=== PATIENT | female | born 2005 | race Caucasian/White ===

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

== ENCOUNTER 2024-10-15 09:10 | Outpatient (CLI) | payer OTHER, SELFPAY | END 2024-10-15 09:11 | disposition home or self-care (01) | LOC: RT 09:11 | PROVIDERS: PCP Family Medicine; Visit Provider Nurse Practitioner Family | DX: Z02.71 Encounter for disability determination (principal) | CPT/HCPCS: 94618 ==

== ENCOUNTER 2025-02-10 15:39 | Outpatient (CLI) | payer BC, MEDICAID, SELFPAY ==
--- NOTE | 2025-02-10 15:46 | CT_ITS ---
WS: [id number] CT NECK WITH CONTRAST HISTORY: OTALGIA, BILATERAL TECHNIQUE: Contiguous 2 mm axial images are performed through the neck with intravenous contrast. Sagittal and coronal reformats are also submitted. All CT scans at [facility] use at least one of these dose optimization techniques: automated exposure control; mA and/or kV adjustment per patient size (includes targeted exams where dose is matched to clinical indication); or iterative reconstruction. CONTRAST: CONTRAST: Omnipaque 350; 100 mL IV. DLP: 240.83 mGy.cm COMPARISON: None available. Nasopharynx, oropharynx, hypopharynx and larynx are unremarkable. No soft tissue masses or abnormal enhancement. Torus tubarius and fossa of Rosenmuller and parapharyngeal fat are normal. Small but numerous bilateral cervical chain lymph nodes. Mildly reactive but not pathologic in appearance. Thyroid gland and salivary glands are normally enhancing with no masses. No osseous abnormalities. Visualized portions of the skull base demonstrate no abnormalities. Orbits and globes are within normal limits. No soft tissue masses. Abnormal RIGHT mastoid air cells. There is sclerosis and coalescence of the mastoid air cells on the RIGHT. No soft tissue surrounding the inner ear ossicles. Eustachian tubes appear patent. Patent dural venous sinuses with the RIGHT being dominant and LEFT smaller caliber. Large mucous retention cyst measuring 2.5 cm in the RIGHT maxillary sinus. Postsurgical changes involving the aortic arch. History of hypoplastic LEFT heart syndrome with surgical repair. Large RIGHT paratracheal mass identified most consistent with a lymph node. Loss of the normal fatty hilum. There are several lymph nodes but the largest is high RIGHT paratracheal measuring 2.3 x 3.1 cm. Similar but smaller mediastinal lymph nodes. On the localizer image there is also mediastinal widening greatest on the RIGHT. CT/CT neck w con* [id number] IMPRESSION: 1. Marked sclerosis with coalescence of the RIGHT mastoid air cells. Most like ly from chronic otomastoiditis. No soft tissue along the inner ear or surroundi ng the ossicles at this time. No focal abscess. 2. Small but numerous, likely reactive cervical chain lymph nodes. 3. Enlarged lymph nodes with loss of the normal fatty hilum involving the supe rior mediastinum. Largest lymph node high RIGHT paratracheal is 2.3 x 3.1 cm. R ecommend follow-up chest CT with IV contrast. Differential includes neoplastic process such as lymphoma or leukemia. Additional work-up needs to be performed at this time. 4. Status post surgical repair of hypoplastic LEFT heart syndrome.
[2025-02-10] MEDS: iohexol 350 mg/mL 500 mL Btl (per mL) IV (16:28)
== END 2025-02-10 15:40 | disposition home or self-care (01) ==
LOC: RAD 15:42
PROVIDERS: PCP Family Medicine; Visit Provider Nurse Practitioner Family
DX: H92.03 Otalgia, bilateral (principal); H74.8X1 Other specified disorders of right middle ear and mastoid; R59.0 Localized enlarged lymph nodes; Z98.890 Other specified postprocedural states; M27.40 Unspecified cyst of jaw; R93.89 Abnormal findings on diagnostic imaging of other specified body structures
CPT/HCPCS: 70491

== ENCOUNTER → 2025-04-03 11:21 | Outpatient (BNVA) | payer BC, SELFPAY | PROVIDERS: PCP Family Medicine; Referring Provider Psychiatry & Neurology Psychiatry; Visit Provider Psychiatry & Neurology Psychiatry | DX: F43.12 Post-traumatic stress disorder, chronic (principal) | CPT/HCPCS: 80061; 83036 ==

== ENCOUNTER 2025-08-19 16:49 | Emergency (ER) | payer MEDICAID, SELFPAY ==
[2025-07-16 09:11] VITALS: BP 126/92; BMI 38.7
--- NOTE | 2025-08-19 17:07 | ECG_ITS ---
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 Measurements Intervals [place] Rate: 90 P: 21 CT: 116 QRS: 97 QRSD: 114 T: 247 QT: 355 QTc: 435 Interpretive Statements SINUS RHYTHM WITH SHORT CT INTERVAL LEFT ATRIAL ENLARGEMENT [-0.15mV P-WAVE IN V1/V2] BORDERLINE RIGHT AXIS DEVIATION [QRS AXIS > 90] INCOMPLETE RIGHT BUNDLE BRANCH BLOCK [90+ ms QRS DURATION, TERMINAL R IN V1/V2, 40+ ms S IN I/aVL/V4/V5/V6] ST DEVIATION AND MODERATE T-WAVE ABNORMALITY, CONSIDER ANTEROLATERAL ISCHEMIA [-0.1+ mV T-WAVE IN V3-V6] ST DEVIATION AND MODERATE T-WAVE ABNORMALITY, CONSIDER INFERIOR ISCHEMIA [-0.1+ mV T-WAVE IN II/aVF] No previous ECG available for comparison Electronically Signed On 08-20-2025 07:40:44 WATER [employer]IN PIPE LAYER by Armani Whaley M.D. [email or web address]
--- NOTE | 2025-08-19 17:09 | XRR_ITS ---
PROCEDURE INFORMATION: Exam: XR Chest Exam date and time: 08/19/2025 5:44 PM Age: 20 years old Clinical indication: Pain; Chest pressure; Additional info: Chest pain TECHNIQUE: Imaging protocol: Radiologic exam of the chest. Views: 1 view. COMPARISON: CR XR chest 1V portable [id number] 08/28/2022 1:17 PM FINDINGS: Lungs: Lungs appear grossly clear. No masses or consolidative changes are visualized in the pulmonary parenchyma. Pleural spaces: Pleura appear normal. No pneumothorax. Heart/Mediastinum: Cardiomediastinal contours appear stable when compared to 2021 exam. Stent again noted along the right aspect of the mediastinum, although current stent appears to have replaced the previous stent. Bones/joints: No acute osseous findings. Prior median sternotomy. XR/XR chest 1V portable [id number] IMPRESSION: Stable cardiomediastinal contours since 2021 and lungs appear clear.
[2025-08-19 17:11] VITALS: BP 134/94; PULSE 89; RESP 14; TEMP 36.7; O2SAT 82
--- NOTE | 2025-08-19 17:47 | CTR_ITS ---
PROCEDURE INFORMATION: Exam: CT Abdomen And Pelvis With Contrast Exam date and time: 08/19/2025 7:01 PM Age: 20 years old Clinical indication: PT reports abdominal pain radiating into her chest. PT had recent heart cath done in June. ; Additional info: Abdominal pain, n/v TECHNIQUE: Imaging protocol: Computed tomography of the abdomen and pelvis with contrast. Radiation optimization: All CT scans at this facility use at least one of these dose optimization techniques: automated exposure control; mA and/or kV adjustment per patient size (includes targeted exams where dose is matched to clinical indication); or iterative reconstruction. Contrast material: [id number]; Contrast volume: 100 ml; Contrast route: INTRAVENOUS (IV); COMPARISON: CR XR chest 1V portable [id number] 08/19/2025 5:44 PM RADIATION DOSE METRICS: Total DLP (mGy-cm): 961.45 FINDINGS: Liver: Nodular contour of the liver with heterogeneous enhancement. There is recanalization of the umbilical vein. Gallbladder and biliary ducts: No gallbladder distension or inflammation. No calcified gallstones are apparent. No common bile duct abnormality is evident. Pancreas: No evidence of pancreatitis. No ductal dilation. Spleen: Spleen is mildly enlarged measuring 13.3 cm on coronal imaging. Adrenal glands: Adrenal glands are within expected limits. Kidneys and ureters: Few low-attenuation renal cortical lesions bilaterally, predominantly subcentimeter and too small to characterize. Largest at the lower pole of the right kidney does measure 1.1 cm and could represent a slightly hyperdense cyst, but technically indeterminate by Hounsfield units. No hydronephrosis. No renal or ureteral calculi. Stomach and bowel: Small bowel is normal caliber. No obstruction. Large bowel within normal limits. No inflammatory wall thickening or abnormal bowel dilatation. Appendix: No evidence of appendicitis. Intraperitoneal space: Small pelvic free fluid, nonspecific and possibly physiologic. No free air. Vasculature: Partially imaged supra hepatic IVC stent noted. Lung bases clear. Lymph nodes: No pathologically enlarged lymph nodes by CT size criteria. Urinary bladder: Unremarkable as visualized. Reproductive: Right ovarian cyst measuring 2.3 cm. Uterus unremarkable. Bones/joints: No acute osseous abnormalities. Soft tissues: Unremarkable. CT/CT abdomen pelvis w con* [id number] IMPRESSION: 1. No acute abdominal or pelvic abnormalities are identified. 2. Right ovarian 2.3 cm cyst and small pelvic free fluid, likely physiologic. 3. Nodular, heterogeneous appearance of the liver with recanalization of the umbilical vein and a partially imaged supra hepatic IVC stent. This constellation is suggestive of a chronic liver disease/dysfunction and/or congestion with nutmeg appearance, although cirrhosis with regenerating nodules could have a similar appearance. 4. Mild splenomegaly. COMMENTS: Consistent with the [employer]'s Incidental Findings Committee white paper (J Am Adam Radiol 2018): Any incidental renal lesion less than 1 cm or classified as too small to characterize, or any incidental cystic renal lesion characterized as simple-appearing, is likely benign. No follow-up imaging is recommended for these lesions per consensus recommendations based on imaging criteria.
--- NOTE | 2025-08-19 17:47 | ED_ITS ---
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 She states she has had upper abdominal pain radiating into her chest and back over the past 2 weeks. She states she is not able to eat or drink much secondary to nausea and vomiting. Denies hematemesis. She was reportedly seen at [facility] 2 to 3 days ago and had a gallbladder ultrasound that showed gallstones without evidence for cholecystitis. She states she does not believe she was referred to general surgery. She does have an active referral to gastroenterology for her liver disease. She is not having any fevers. No changes in bowel movements. She is hypoxic upon arrival but states this is normal with her congenital heart condition. She states a normal oxygen for her is 85 and above . She is not complaining of shortness of breath. MD elicited complaint: abdominal pain Onset (ago): week(s) Pain Consistency: constant Location: Epigastric, LUQ and RUQ Severity: moderate Radiation: none Migration to: no migration Exacerbating factors: eating Relieving factors: nothing Associated Symptoms: Reports vomiting; Denies chills, diarrhea, dysuria, fever(s), heartburn, hematuria, hematemesis, nausea and syncope Related Data Home Medications ?Medication ?Instructions ?Recorded ?Confirmed aspirin 81 mg tablet,delayed 81 mg PO DAILY 08/03/20 0 04/03/25 release (Adult Aspirin Regimen) amlodipine 5 mg tablet 5 mg PO DAILY 09/19/2404/03 clindamycin HCl 300 mg capsule 300 mg PO .1 hour befor e visit 09/19/24 04/03/25 levothyroxine 88 mcg capsule 88 mcg PO DAILY 09/19/24 04/03/25 losartan 100 mg tablet 100 mg PO DAILY 09/19/2412/24 venlafaxine 75 mg capsule,extended 75 mg PO DAILY 09/0104/03/25 release 24 hr tirzepatide (weight loss) 7.5 7.5 mg SUBCUT .weekly 04/03/25 mg/0.5 mL subcutaneous pen injector (Zepbound) Previous Rx's ?Medication ?Instructions ?Recorded cetirizine 10 mg tablet (Zyrtec) 10 mg PO DAILY #30 ta bs 12/05/22 fluticasone propionate 50 2 spray intranasal DAILY #16 grams 12/05/22 mcg/actuation nasal spray,suspension (Flonase Allergy Relief) levofloxacin 500 mg tablet 500 mg PO DAILY #7 tabs 10/26 metoclopramide HCl 10 mg tablet 10 mg PO Q6H PRN nause a and 08/19/25 vomiting #14 tabs Allergies Allergy/AdvReac Type Severity Reaction Status Date / Time adhesive Allergy Unknown Verified 08/19/25 17:00 amoxicillin Allergy hives Verified 04/03/25 07:39 Penicillins Allergy Unknown Verified 08/19/25 17:00 Review of Systems 2 Const: Denies: fever(s) or chills Eyes: Denies: change in vision or blurry vision Card: Denies: chest pain, palpitations, irregular heart rhythm, edema, swelling of feet/ankles, lightheadedness, syncope, pre-syncope, dyspnea on exertion, orthopnea, leg pain with exertion or acrocyanosis Resp: Denies: dyspnea, productive cough or pain on inspiration GI: Reports: abdominal pain and vomiting; Denies: nausea, hematemesis, heartburn or diarrhea : Denies: flank pain, dysuria or hematuria Musc: Denies: neck pain, back pain or joint pain Skin/Breast: Denies: rash Neuro: Denies: headache(s) or dizziness PFSH ED 2 PFSH: Medical History Psychiatric care HLH (hypoplastic left heart syndrome) Hypoplasia Surgical History History of open heart surgery Family History Other Diabetes mellitus type 1 Hypertension Hypothyroidism Social History Smoking and tobacco/nicotine status: current every day tobacco/nicotine user e- cigarettes E-Cigarette Details: e-cigarette and with nicotine E-cig/vape details: disposable goes through one in a week Quit status (tobacco/nicotine): not considering quitting Second hand smoke exposure: Yes Alcohol intake: never Substance/Drug Use: never Adopted: No Caregiver/support person: No Lives independently: No Household members: family and other Housing: House Marital status: Single Number of children: 0 Highest education level completed: Some College, No Degree service: No Current occupational status: disabled Pets and animals: Yes Pets & animals: dog(s) Leisure activites: other Leisure activities details: watch [employer]an[employer] An[employer] and talk with her grandma Sexually active: No Do you think of yourself as: Straight/Heterosexual Current gender identity: Female Natalie/Adventist: None Special natalie needs: No Agree to transfusion: Yes Female Reproductive History: Para: 0 Spontaneous abortions: Yes (X2) Physical Exam 2 Const: COMMON NORMALS: no acute distress, patient oriented x3, no limitations, alert and well nourished GENERAL APPEARANCE: cooperative NUTRITIONAL APPEARANCE: overweight ORIENTATION/CONSCIOUSNESS: Yes awake, Yes oriented to person, Yes oriented to place and Yes oriented to time Chest: COMMONS NORMALS: normal palpation of entire chest wall CHEST: Yes Surgical scars present (Chest) Resp: COMMON NORMALS: normal respiratory effort and clear to auscultation bilaterally AUSCULTATION: clear to auscultation bilaterally Cardio: COMMON NORMALS: regular rate and regular rhythm RATE: regular rate RHYTHM: regular rhythm GI: COMMON NORMALS: Normal to inspection, nondistended, normoactive bowel sounds present, Soft to palpation, No hepatosplenomegaly present and no masses INSPECTION: Yes normal to inspection AUSCULTATION: Yes normoactive bowel sounds PALPATION: Yes Soft to palpation, Yes Tenderness to palpation present (GI) (generalized tenderness), No Guarding due to palpation present (GI), No Rigid due to palpation and Yes No hepatosplenomegaly present : COMMON NORMALS: Yes no CVA tenderness BLADDER/KIDNEY EXAM: Yes no CVA tenderness Back/Pelvis: COMMON NORMALS: no CVA tenderness, thoracic and lumbar spine normal to inspection and no thoracic nor lumbar tenderness Extremity: GENERAL: Yes normal exam except as noted Neuro: BA COMA SCALE: document GCS findings Ba coma scale eye opening: Spontaneous Ba coma scale verbal response: Orientated [place] coma scale motor response: Obey commands Ba coma scale total score: 15 COMMON NORMALS: patient oriented x3, moves all extremities, no focal motor deficits, no sensory deficits noted and gait normal SENSORIUM/ORIENTATION: Yes alert, Yes oriented to person, Yes oriented to place and Yes oriented to time Skin: COMMON NORMALS: no rashes or lesions noted GENERAL SKIN EXAM: no rashes or lesions noted Course 2 Vital Signs: Vital signs: Vital Signs Temperature 98.0 F 08/19/25 17:11 Pulse Rate 82 08/19/25 18:52 Respiratory Rate 14 08/19/25 17:11 Blood Pressure 122/66 08/19/25 18:52 Pulse Oximetry 89 L 08/19/25 18:52 Oxygen Delivery Me thod Room Air 08/19/25 18:52 MDM - Abdominal Pain Medical Decision Making Patient clinically appears in no acute distress. Her blood work showing a normal white count. Remainder of her labs are unremarkable. Liver enzymes are normal. UA was clear. CT imaging showing chronic findings regarding her liver and other incidental findings but no acute abnormalities. We did receive ultrasound imaging that she had performed a few days ago which showed liver nodule hepatic contours compatible with her known hepatic fibrosis. She did have multiple gallstones without evidence of acute cholecystitis. Will refer her to general surgery to [facility] for further evaluation. She does states she already has a referral placed for gastroenterology. Medication list does include Zepbound which certainly could cause GI symptoms. She states she has been taking Zofran at home without much relief. Will attempt Reglan. Return to ED precautions discussed. Differential Diagnosis Likely abdominal pain, acute appendicitis, constipation, diverticulitis, gastroenteritis and pancreatitis Medical Records I reviewed the patient's medical records. Lab Data I reviewed the patient's lab results. 08/19/25 17:48 08/19/25 17:48 Labs/Radiology: Radiology Impressions Chest X-Ray 08/19/25 17:09 IMPRESSION: Stable cardiomediastinal contours since 2021 and lungs appear clear. Abdomen/Pelvis CT 08/19/25 17:47 IMPRESSION: 1. No acute abdominal or pelvic abnormalities are identified. 2. Right ovarian 2.3 cm cyst and small pelvic free fluid, likely physiologic. 3. Nodular, heterogeneous appearance of the liver with recanalization of the umbilical vein and a partially imaged supra hepatic IVC stent. This constellation is suggestive of a chronic liver disease/dysfunction and/or congestion with nutmeg appearance, although cirrhosis with regenerating nodules could have a similar appearance. 4. Mild splenomegaly. COMMENTS: Consistent with the [employer]'s Incidental Findings Committee white paper (J Am Adam Radiol 2018): Any incidental renal lesion less than 1 cm or classified as too small to characterize, or any incidental cystic renal lesion characterized as simple-appearing, is likely benign. No follow-up imaging is recommended for these lesions per consensus recommendations based on imaging criteria. Laboratory Results WBC 6.23 10^3/uL (3.29-11.43) 08/19/25 17:48 RBC 5.65 10^6/uL (3.85-5.65) 08/19/25 17:48 Hgb 16.10 g/dL (11.27-16.99) 08/19/25 17:48 Hct 49.1 % (36-47) H 08/19/25 17:48 MCV 86.9 fl (85-98) 08/19/25 17:48 MCH 28.5 pg (27-33) 08/19/25 17:48 MCHC 32.8 g/dL (30-55) 08/19/25 17:48 RDW 13.9 % (12.1-15.1) 08/19/25 17:48 Plt Count 198 10^3/cmm (157-399) 08/19/25 17:48 MPV 13.6 fL (7.4-10.4) H 08/19/25 17:48 Neut % (Auto) 68.6 % 08/19/25 17:48 Lymph % (Auto) 21.8 % 08/19/25 17:48 Branch % (Auto) 8.5 % 08/19/25 17:48 Eos % (Auto) 0.0 % 08/19/25 17:48 Baso % (Auto) 0.8 % 08/19/25 17:48 Neut # (Auto) 4.27 10^3/uL (1.8-7.7) 08/19/25 17:48 Lymph # (Auto) 1.4 10^3/uL (0.8-4.8) 08/19/25 17:48 Branch # (Auto) 0.5 10^3/uL (0.2-0.9) 08/19/25 17:48 Eos # (Auto) 0.0 10^3/uL (0.0-0.8) 08/19/25 17:48 Baso # (Auto) 0.1 10^3/uL (0.0-0.1) 08/19/25 17:48 Nucleated RBC % (auto) 0 % 08/19/25 17:48 Nucleated RBCs # 0.0 /100WBC 08/19/25 17:48 PT 13.90 SECONDS (12.1-14.9) 08/19/25 17:48 INR 1.00 (0.8-1.2) 08/19/25 17:48 APTT 29.1 SECONDS (23.9-36.7) 08/19/25 17:48 Sodium 140 mmol/L (136-145) 08/19/25 17:48 Potassium 3.9 mmol/L (3.5-5.1) 08/19/25 17:48 Chloride 107 mmol/L (98-107) 08/19/25 17:48 Carbon Dioxide 18 mmol/L (22-29) L 08/19/25 17:48 Anion Gap 18.9 (5-19) 08/19/25 17:48 BUN 11 mg/dL (6-20) 08/19/25 17:48 Creatinine 0.6 mg/dL (0.5-0.9) 08/19/25 17:48 GFR Calculation 126.2 mL/min (90-130) 08/19/25 17:48 Glucose 83 mg/dL (65-115) 08/19/25 17:48 Calculated Osmolality 289 mOsm/kg (285-295) 08/19/25 17:48 Calcium 9.6 mg/dL (8.5-10.5) 08/19/25 17:48 Total Bilirubin 0.8 mg/dL (0.15-1.2) 08/19/25 17:48 AST 15 U/L (0-32) 08/19/25 17:48 ALT 16 U/L (0-33) 08/19/25 17:48 Alkaline Phosphatase 68 U/L (35-105) 08/19/25 17:48 Troponin T Baseline 9 ng/L (0-10) 08/19/25 17:48 NT-Pro-B Natriuret Pep 270 pg/mL (0-125) H 08/19/25 17:48 Total Protein 7.8 g/dL (6.6-8.7) 08/19/25 17:48 Albumin 4.8 g/dL (3.5-5.2) 08/19/25 17:48 Globulin 3.0 g/dL (1.3-4.6) 08/19/25 17:48 Lipase 29 U/L (13-60) 08/19/25 17:48 HCG, Qual Negative (Negative) 08/19/25 17:48 Urine Color Yellow (Yellow) 08/19/25 19:49 Urine Appearance Clear (CLEAR) 08/19/25 19:49 Urine pH 6.0 (5-7) 08/19/25 19:49 Ur Specific [place] 1.055 (1.005-1.030) H 08/19/25 19:49 Urine Protein Trace (Negative) A 08/19/25 19:49 Urine Glucose (UA) Negative (Normal) 08/19/25 19:49 Urine Ketones 2+ (Negative) H 08/19/25 19:49 Urine Blood Negative (Negative) 08/19/25 19:49 Urine Nitrate Negative (Negative) 08/19/25 19:49 Urine Bilirubin Negative (Negative) 08/19/25 19:49 Urine Urobilinogen 2.0 mg/dL (Negative) H 08/19/25 19:49 Ur Leukocyte Esterase Negative (Negative) 08/19/25 19:49 Urine RBC 0-2 /hpf (0-2) 08/19/25 19:49 Urine WBC 0-5 /hpf (0-5) 08/19/25 19:49 Ur Squamous Epith Cells 0-5 /hpf (0-5) 08/19/25 19:49 Amorphous Sediment Not Reportable 08/19/25 19:49 Urine Bacteria Trace /hpf (NONE) 08/19/25 19:49 Hyaline Casts 2.05 /lpf 08/19/25 19:49 All radiology interpretation(s) finalized by discharge Discharge Plan Discharge Patient Disposition: Home Clinical Impression: Abdominal pain Qualifiers: Abdominal location: generalized Qualified Code(s): R10.84 - Generalized abdominal pain Cholelithiasis Qualifiers: Cholelithiasis location: gallbladder Cholecystitis presence: without cholecystitis Biliary obstruction: without biliary obstruction Qualified Code(s): K80.20 - Calculus of gallbladder without cholecystitis without obstruction Nausea and vomiting Qualifiers: Vomiting type: unspecified Qualified Code(s): R11.2 - Nausea with vomiting, unspecified Condition: Stable Prescriptions: New metoclopramide HCl 10 mg tablet 10 mg PO Q6H PRN (Reason: nausea and vomiting) Qty: 14 0RF No Action aspirin [Adult Aspirin Regimen] 81 mg tablet,delayed release (DR/EC) 81 mg PO DAILY fluticasone propionate [Flonase Allergy Relief] 50 mcg/actuation spray,suspension 2 spray intranasal DAILY Qty: 16 0RF Rx Instructions: administer into each nostril cetirizine [Zyrtec] 10 mg tablet 10 mg PO DAILY Qty: 30 0RF Zepbound 7.5 mg/0.5 mL pen injector 7.5 mg SUBCUT .weekly losartan 100 mg tablet 100 mg PO DAILY venlafaxine 75 mg capsule,extended release 24hr 75 mg PO DAILY Rx Instructions: With 150 mg amlodipine 5 mg tablet 5 mg PO DAILY levothyroxine 88 mcg capsule 88 mcg PO DAILY clindamycin HCl 300 mg capsule 300 mg PO .1 hour before visit levofloxacin 500 mg tablet 500 mg PO DAILY Qty: 7 0RF Discharge Orders: Discharge ED (Routine); Ordered 08/19/25 Ordered By: Vane Lowry Referrals: Edi Lantigua DO [Primary Care Provider] Patient Instructions: Abdominal Pain (ED), Patient Portal & Marilyn Instructions Activity Restrictions/Additional Instructions: As we discussed, imaging here was essentially unremarkable apart from your known chronic findings in your liver. Gallbladder imaging was obtained and does show gallstones but no evidence that your gallbladder is infected. Vital signs have been stable here. Your blood work was essentially unremarkable. As we discussed, I will have you follow-up with general surgery to [facility] and continue plan for follow-up with gastroenterology. We will prescribe something to help with nausea. You can follow-up with your primary care provider. You may return to the emergency department for any further concerns you may have. 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
[2025-08-19 17:53] LABS: Hematocrit 49.1 % (36-47); Hemoglobin 16.10 g/dL (11.27-16.99); Mean Corpuscular HGB Conc 32.8 g/dL (30-55); Mean Corpuscular Hemoglobin 28.5 pg (27-33); Mean Corpuscular Volume 86.9 fl (85-98); Nucleated Red Blood Cells % 0 %; Platelet Count 198 10^3/cmm (157-399); Red Blood Count 5.65 10^6/uL (3.85-5.65); White Blood Count 6.23 10^3/uL (3.29-11.43)
[2025-08-19 18:05] LABS: HCG, Serum Qual Negative (Negative)
[2025-08-19 18:23] LABS: Troponin(5th) Baseline 9 ng/L (0-10)
[2025-08-19 18:32] LABS: Alanine Aminotransferase 16 U/L (0-33); Albumin Level 4.8 g/dL (3.5-5.2); Alkaline Phosphatase 68 U/L (35-105); Anion Gap 18.9 (5-19); Aspartate Amino Transferase 15 U/L (0-32); Blood Urea Nitrogen 11 mg/dL (6-20); Calcium 9.6 mg/dL (8.5-10.5); Carbon Dioxide 18 mmol/L (22-29); Chloride 107 mmol/L (98-107); Globulin 3.0 g/dL (1.3-4.6); Glucose 83 mg/dL (65-115); Lipase 29 U/L (13-60); NT Pro B Type Natriuretic Pept 270 pg/mL (0-125); Osmolality Calculated 289 mOsm/kg (285-295); Potassium 3.9 mmol/L (3.5-5.1); Sodium 140 mmol/L (136-145); Total Protein 7.8 g/dL (6.6-8.7)
[2025-08-19 18:52] VITALS: BP 122/66; PULSE 82; O2SAT 89
[2025-08-19 18:56] LABS: INR 1.00 (0.8-1.2); Prothrombin Time 13.90 SECONDS (12.1-14.9)
[2025-08-19 18:57] LABS: Partial Thromboplastin Time 29.1 SECONDS (23.9-36.7)
[2025-08-19] MEDS: iohexol 350 mg/mL 500 mL Btl (per mL) IV (19:03)
--- NOTE | 2025-08-19 19:09 | ECG_ITS ---
depict Test Date: 2025-08-19 Pat Name: Mari Winkler Department: Room: Gender: Female Ceo And Founder: : 2005 Requested By: Niurka Liriano Order Number: [id number] Figueroa MD: Armani Whaley M.D. Measurements Intervals [place] Rate: 72 P: -5 LA: 137 QRS: 90 QRSD: 117 T: 168 QT: 403 QTc: 443 Interpretive Statements SINUS RHYTHM WITH SINUS ARRHYTHMIA POSSIBLE LEFT ATRIAL ENLARGEMENT [-0.1mV P-WAVE IN V1/V2] MODERATE INTRAVENTRICULAR CONDUCTION DELAY [110+ ms QRS DURATION] ST DEVIATION AND MODERATE T-WAVE ABNORMALITY, CONSIDER ANTEROLATERAL ISCHEMIA [-0.1+ mV T-WAVE IN V3-V6] ST DEVIATION AND MODERATE T-WAVE ABNORMALITY, CONSIDER INFERIOR ISCHEMIA [-0.1+ mV T-WAVE IN II/aVF] Compared to ECG 08/19/2025 17:07:43 Intraventricular conduction delay now present.Short LA interval no longer present.Incomplete right bundle-branch block no longer present T-wave abnormality still present Possible ischemia still present Electronically Signed On 08-20-2025 09:53:28 PHYSICAL THERAPY ASSISTANT INSTRUCTOR by Armani Whaley M.D. [id number] [id number]
[2025-08-19 19:58] LABS: Glucose Urine UA Negative (Normal); Nitrate Urine Negative (Negative)
[2025-08-19 20:03] LABS: Add Urine Microscopic? YES
[2025-08-19 20:04] LABS: Specific Gravity, Urine 1.055 (1.005-1.030)
--- NOTE | 2025-08-19 20:20 | PC.NURSE ---
Pt has declined vital sign monitoring at this time.
[2025-08-19 20:27] LABS: Troponin 5 2HR 8.71 ng/L (0-10)
[2025-08-19 20:31] LABS: Troponin 5 2HR Delta -0.29 ABS# (0-10)
--- OUTSIDE RECORDS SUMMARY | 2025-08-20 05:11 | XMS_ITS | Encounter Summary ---
Author Organization [facility] Address [address] [place] [address] Care Team Providers Care Digital Production Operator Name Role Phone Jeff Colon MD Primary Care Provider Encounter Details Date Type Department Care Team (Late st Contact Info) Description 11/26/2007 Outpatient Historical [facility] Medicine [place] [address] [phone] Frederick Owen MD [address] [place] [phone] Social History Tobacco Use Types Packs/Day Years Used Date Smoking Tobacco: Never Assessed Comments Unknown Sex and Gender Information Value Date Recorded Sex Assigned at Not on file Legal Sex Female 3:16 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
--- OUTSIDE RECORDS SUMMARY | 2025-08-20 05:11 | XMS_ITS | Encounter Summary ---
Author Organization [facility] Address [address] [place] [address] Care Team Providers Care Casing In Line Feeder Name Role Phone Edi Lantigua DO Primary Care Provider [phone] Encounter Details Date Type Department Care Team (Late st Contact Info) Description 08/04/2025 Results Follow-Up [facility] Medicine [place] [address] [place] [phone] Edi Lantigua DO [address] [phone] XR CHEST PA AND LATERAL 2 VW Social History Tobacco Use Types Packs/Day Years Used Date Smoking Tobacco: Former Cigarettes Passive Smoke Exposure: Past Smokeless Tobacco: Never Alcohol Use Standard Drinks/Week Comments Never 0 (1 standard drink = 0.6 oz pur e alcohol) Food Insecurity Answer Date Recorded Do you find you are eating l ess than you should because you can t pay for food? No 08/03/2025 Transportation Needs Answer Date Record ed Have you gone without health care because you didn t have a way to get there? Or worry about transportation for future doctor visits, mushroom picker medication, etc.? No 2024 Housing Stability Answer Date Recorded Do you worry you won t have a steady place to sleep or struggle to pay rent or mortgage? No 08/03/2025 Utility Needs Answer Date Recorded Do you have difficulty payin g for utility costs (electric, water or gas bills)? No 08/03/2025 Medication Needs Answer Date Recorded Have you skipped taking medi cation due to cost or worry you can t afford new medications? No 08/03/2025 Feeling Safe Answer Date Recorded Are you in a relationship wi th someone who hurts you emotionally and/or physically? No 08/03/2025 Comments No Sex and Gender Information Value Date Recorded Sex Assigned at Not on file Legal Sex Female 3:52 PM PONY EDGER Gender Identity Not on file Sexual Orientation Not on file Occupation Industry Job Start Date Job End Date Not on file Not on file Not on file Not on file documented as of this encounter Plan of Treatment Upcoming Encounters Date Type Department Care Team (Late st Contact Info) Description 08/20/2025 11:20 AM PONY EDGER Office Visit [facility] [address] [phone] Alexsandra Knowles FNP [address] [phone] 11/05/2025 10:40 AM PONY EDGER Office Visit [facility] [address] [phone] Edi Lantigua DO [address] [place] [phone] documented as of this encounter Visit Diagnoses Not on filedocumented in this encounter Care Teams Casing In Line Feeder Relationship Specialty Start Date End Date Edi Lantigua DO [address] [place] [phone] PCP - General Family Practice 08/06/24 documented as of this encounter
--- OUTSIDE RECORDS SUMMARY | 2025-08-20 05:11 | XMS_ITS | Encounter Summary ---
Author Organization [facility] Address [address] [place] [address] Care Team Providers Care Aeronautics Teacher Name Role Phone Edi Lantigua DO Primary Care Provider [phone] Reason for Visit * Reason Comments Hospital Follow Up Encounter Details Date Type Department Care Team (Late st Contact Info) Description 05/07/[address] [phone] Edi Lantigua DO [address] [place] [phone] Hospital Follow Up Social History Tobacco Use Types Packs/Day Years Used Date Smoking Tobacco: Former Cigarettes Passive Smoke Exposure: Past Smokeless Tobacco: Never Alcohol Use Standard Drinks/Week Comments Never 0 (1 standard drink = 0.6 oz pur e alcohol) Feeling Safe Answer Date Recorded Are you in a relationship wi th someone who hurts you emotionally and/or physically? No 09/25/2024 Comments No Sex and Gender Information Value Date Recorded Sex Assigned at Not on file Legal Sex Female 3:52 PM JTAC Gender Identity Not on file Sexual Orientation Not on file Occupation Industry Job Start Date Job End Date Not on file Not on file Not on file Not on file documented as of this encounter Miscellaneous Notes * Telephone Encounter - Dhaval Zarco - 05/07/2025 1:25 PM CDT Copied from [facility] #[id number]. Topic: Established Patient Care >> May 07, 2025 1:23 PM Dhaval Cho wrote: Is the patient established with a [facility] provider? Yes, select appropriate option in Discharge Facility SmartList Caller Name: Mari Winkler Callback Number: [phone] (mobile) Call Notes: patient calling to schedule hospital f/u Patient is Rising Risk Where was the patient discharged from? Emergency Department (ED/ER) Is there availability to schedule the patient within 5 calendar days of discharge? No, in person appointment not available or call came after 5 days of discharge documented in this encounter Plan of Treatment Upcoming Encounters Date Type Department Care Team (Late st Contact Info) Description 08/20/2025 11:20 AM JTAC Office Visit [facility] [address] [phone] Alexsandra Knowels FNP [address] [phone] 11/05/2025 10:40 AM JTAC Office Visit [facility] [address] [phone] Edi Lantigua DO [address] [place] [phone] documented as of this encounter Visit Diagnoses Not on filedocumented in this encounter Additional Health Concerns Infection Onset Date Last Indicated Resolved Time R/O Respiratory 06/09/2025 06/09/2025 06/09/2025 7 :18 PM CDT RHINO/ENTEROVIRUS (Adult) 06/09/2025 06/09/2025 10:22 PM CDT documented as of this encounter Care Teams Aeronautics Teacher Relationship Specialty Start Date End Date Edi Lantigua DO [address] [place] [phone] PCP - General Family Practice 08/06/24 documented as of this encounter
--- OUTSIDE RECORDS SUMMARY | 2025-08-20 05:11 | XMS_ITS | Encounter Summary ---
Author Organization [facility] Address [address] [place] [address] Care Team Providers Care Certified Phlebotomy Technician Name Role Phone Edi Lantigua DO Primary Care Provider [phone] Encounter Details Date Type Department Care Team (Latest Contact Info) Description 06/25/2025 Results Follow-Up [address] [phone] Emmie Maria LPN COMPREHENSIVE METABOLIC PANEL, CBC WITH DIFFERENTIAL Social History Tobacco Use Types Packs/Day Years [...] on file Legal Sex Female 3:52 PM RN CLINICAL Gender Identity Not on file Sexual Orientation Not on file Occupation Industry Job Start Date Job End Date Not on file Not on file Not on file Not on file documented as of this encounter Miscellaneous Notes * Result Encounter Note - Catrina Rome LPN - 06/27/2025 8:45 AM CDT 06/27/2025 8:45 AM No answer. No voicemail or answering machine. Will continue to try to reach patient/caregiver. . Ifpatient/caregiver calls back, contact center may tell caller Red and white blood cells are essentially normal, unchanged since recent hospitalization. Liver and kidney function are normal. Catrina FERNANDEZ * Result Encounter Note - Emmie Maria LPN - 06/25/2025 4:14 PM CDT Attempted to contact patient, No answer, I was unable leave a voicemail. Contact center may give the following results from documented in this encounter Plan of Treatment Upcoming Encounters Date Type Department Care Team (Late st Contact Info) Description 08/20/2025 11:20 AM RN CLINICAL Office Visit [facility] [address] [phone] Alexsandra Knowles FNP [address] [phone] 11/05/2025 10:40 AM RN CLINICAL Office Visit [facility] [address] [phone] Edi Lantigua DO [address] [place] [phone] documented as of this encounter Visit Diagnoses Not on filedocumented in this encounter Care Teams Certified Phlebotomy Technician Relationship Specialty Start Date End Date Edi Lantigua DO [address] [place] [phone] PCP - General Family Practice 08/06/24 documented as of this encounter
--- OUTSIDE RECORDS SUMMARY | 2025-08-20 05:12 | XMS_ITS | Encounter Summary ---
Author Organization [facility] Address 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 Topic: [id number] Call >> Jul 11, 2025 9:51 AM Leilani Ferreira wrote: Caller is requesting to speak with Clinical Care Team. Caller Name: Veronica with [facility] Callback Number: [phone] Is the caller a Physician, Nurse Practitioner or Physician Patient Admitting Clerk? No Call Notes: Veronica is requesting to speak with a nurse regarding labs. Is this addressing an immediate patient care need? Yes Transferred to Backline/SCREEN PRINTING CLOTH SPREADER Line and Danni answered call. No answer on PCN, transferred to SCREEN PRINTING CLOTH SPREADER line instead. documented in this encounter Plan of Treatment Upcoming Encounters Date Type Department Care Team (Late st Contact Info) Description 08/20/2025 11:20 AM RIVER BOAT CAPTAIN Office Visit [facility] [address] [phone] Alexsandra Knowles FNP [address] [phone] 11/05/2025 10:40 AM RIVER BOAT CAPTAIN Office Visit [facility] [address] [phone] Edi Lantigua DO [address] [place] [phone] documented as of this encounter Visit Diagnoses Not on filedocumented in this encounter Care Teams Medical Chief Technician Relationship Specialty Start Date End Date Edi Lantigua DO [address] [place] [phone] PCP - General Family Practice 08/06/24 documented as of this encounter
--- OUTSIDE RECORDS SUMMARY | 2025-08-20 05:12 | XMS_ITS | Encounter Summary ---
Author Organization [facility] Address [address] [place] [address] Care Team Providers Care Feedlot Manager Name Role Phone Jeff Colon MD Primary Care Provider Encounter Details Date Type Department Care Team (Late st Contact Info) Description 09/03/2007 Outpatient Historical [facility] [address] [phone] Hipolito Bethea, ASSISTANT MANAGER AIRSIDE OPERATIONS [address] [place] [address] Social History Tobacco Use Types Packs/Day Years Used Date Smoking Tobacco: Never Assessed Comments Unknown Sex and Gender Information Value Date Recorded Sex Assigned at Not on file 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
--- OUTSIDE RECORDS SUMMARY | 2025-08-20 05:12 | XMS_ITS | Clinical Summary ---
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 023 Active losartan (COZAAR) 100 mg tablet Take 1 Tablet by mouth daily. 024 Active zolpidem (AMBIEN) 5 mg tabletIndicati ons:Adjustment insomnia Take 1 Tablet (5 mg) by mouth nightly as needed for Insomnia. 30 Tablet 1 025 Active ondansetron (ZOFRAN ODT) 4 mg Tablet, Rapid DissolveIndica tions:Nausea and vomiting, unspecified vomiting type Take 1 Tablet (4 mg) by mouth every 8 hours as needed for Nausea/Emesis. Dissolve tablet on top of tongue, then swallow with saliva. 30 Tablet 3 025 Active benzonatate (TESSALON) 200 mg capsuleIndicat ions:Respirato ry illness,Acute cough Take 1 Capsule (200 mg) by mouth 3 times daily as needed for Cough. 30 Capsule 1 025 Active Ventolin HFA 90 mcg/actuation inhaler Take 2 Puffs by inhalation. 025 Active ergocalciferol (VITAMIN D2) 50,000 unit capsule Take 1 Capsule by mouth every 7 days. 08/20/2 025 Active famotidine (PEPCID) 40 mg tablet Take 40 mg by mouth every 24 hours. 2025 Active diclofenac sodium (VOLTAREN) 1 % gel 4 Grams by See Admin Instructions route. Active hydrOXYzine HCL (ATARAX) 25 mg tablet Take 1 Tablet by mouth every 6 hours. Active methocarbamoL (ROBAXIN) 750 mg tablet Take 750 mg by mouth 3 times daily. Active sertraline (ZOLOFT) 50 mg tablet Take 50 mg by mouth daily. Active rivaroxaban (Xarelto) 10 mg Tablet Take 10 mg by mouth daily with supper. Active pantoprazole (PROTONIX) 20 mg Tablet, Delayed Release (E.C.)Indicati ons:Gastroesop hageal reflux disease with esophagitis, unspecified whether hemorrhage Take 1 Tablet (20 mg) by mouth daily. 30 Tablet 1 Active Zepbound 7.5 mg/0.5 mL Pen InjectorIndica tions:Severe obesity (BMI 35.0-39.9) with comorbidity (CMS/HCC) INJECT 7.5MG SUBCUTANEOUSLY EVERY 7 DAYS 4 mL 11 Active tirzepatide, weight loss, (Zepbound) 15 mg/0.5 mL Pen InjectorIndica tions:Severe obesity (BMI 35.0-39.9) with comorbidity (CMS/HCC) Inject 0.5 mL (15 mg) by subcutaneous injection every 7 days. 2 mL 11 2024 Discontinued mupirocin (BACTROBAN) 2 % OintmentIndica tions:Localize d bacterial infection of skin Apply to affected area daily for 7 days. 22 Gram 2024 doxycycline hyclate (VIBRAMYCIN) 100 mg capsule Take 1 Capsule (100 mg) by mouth 2 times daily for 7 days. 14 Capsule 2024 Additional Information Patient not taking.Reported on 08/04/2025 tirzepatide, weight loss, (Zepbound) 7.5 mg/0.5 mL Pen InjectorIndica tions:Severe obesity (BMI 35.0-39.9) with comorbidity (CMS/HCC) Inject 0.5 mL (7.5 mg) by subcutaneous injection every 7 days. 2 mL 11 025 2024 Discontinued cephALEXin (KEFLEX) 500 mg capsuleIndicat ions:Celluliti s of chest wall Take 2 Capsules (1,000 mg) by mouth 2 times daily for 3 days. 12 Capsule 025 2024 Hospital, Clinic, or Other Facility Administered Medication Ordered Dose Route Frequency Start Date End Date Status diphenhydrAMINE (BENADRYL) injection 50 mgIndications:Acut e migraine 50 mg IM ONE TIME ONLY 08/01/2025 08/01/2025 Ended prochlorperazine (COMPAZINE) injection 10 mgIndications:Acut e migraine 10 mg IM ONE TIME ONLY 08/01/2025 08/01/2025 Ended dexAMETHasone (DECADRON) injection 4 mgIndications:Acut e migraine 4 mg IM ONE TIME ONLY 08/01/2025 08/01/2025 Discontinue d dexAMETHasone (DECADRON) injection 10 mgIndications:Shor tness of breath,Allergic reaction to adhesive,Celluliti s of chest wall,Acute diarrhea,Acute migraine 10 mg IM ONE TIME ONLY 08/01/2025 08/01/2025 Ended Active Problems Problem Noted Date Diagnosed Date Blood type A+ 08/04/2025 Nonsuicidal self-injury 07/29/2025 History of drug overdose 07/29/2025 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 Discussed with patient if she is high risk and medication will need to changed and some of it discontinued. Patient informed she will need to speak with her patient services representative as well. Episode of recurrent major depressive disorder 0 05/03/2024 Assessment & Plan (06/14/2024 10:18 AM CDT): Patient is ask 3 different times during the exam if she has any thoughts of self harm. Patient denies any plans of self harm or suicidal l thoughts. Continue the venlafaxine 150 mg daily. Discussed proper medication use. Discussed possibly having her cousin help with medication management. Discussed with Zulema on-call and PCN to have a follow up phone call with the patient tomorrow. Patient reports she will think about it. . Following [facility] Suicide prevention hotline number provided. Education provided. Assessment & Plan (05/24/2024 10:18 AM CDT): Suboptimal control. Suicide prevention hotline number provided. Education provided. Increased Effexor to 150 mg daily, add in trazodone 50 mg at bedtime. Continue to follow with counseling Denies any SI/HI . Patient to follow up in 2 week for further mediation adjustments Assessment & Plan (05/03/2024 10:12 AM CDT): Uncontrolled. Managed by Behavioral Health Suicide prevention hotline number provided. Education provided. Patient agreeable to start Effexor daily. Discussed can increase the medication before next visit if it is needed. Discussed side effects of the medication with the patient.Discussed it can take 4-6 weeks for the medication to affective in the system. PHQ-2 & PHQ-9 Little interest or pleasure in doing things: More than half the days (05/03/24899) Feeling down, depressed, or hopeless: More than half the days (05/03/24899) PHQ-2 Total: 4 (05/03/24899) Trouble falling or staying asleep, or sleeping too much: Nearly every day (05/03/24899) Feeling tired or having little energy: Several Days (05/03/24899) Poor appetite or overeating: Several Days (05/03/24899) Feeling bad about yourself-or that you are a failure or have let yourself or your family down: Several Days (05/03/24899) Trouble concentrating on things, such as reading the newspaper or watching television: Not at all (05/03/24899) Moving or speaking so slowly that other people could have noticed. Or the opposite-being so fidgety or restless that you have been moving around a lot more than usual: Not at all (05/03/24899) Thoughts that you would be better off , or of hurting yourself in some way: Not at all (05/03/24899) PHQ-9 Total: 10 (05/03/24899) If you checked off any problems, how difficult have these problems made it for you to do your work, take care of things at home, or get along with other people?: Not difficult at all (05/03/24899) Anxiety state 05/03/2024 Assessment & Plan (06/14/2024 10:05 AM CDT): Continue venlafaxine 150 mg daily Assessment & Plan (05/24/2024 10:19 AM CDT): Increase Effexor to 150 mg daily. Discussed side effects of the medication. Continue with counseling. Denies any SI/HI Assessment & Plan (05/03/2024 10:11 AM CDT): Patient agreeable to start Effexor 75 mg daily. Follow up in 2-3 weeks for further medication adjustments. PTSD (post-traumatic stress disorder) 05/03/2024 Assessment & Plan (06/14/2024 10:05 AM CDT): Continue venlafaxine 150 mg daily. Following with therapy Assessment & Plan (05/24/2024 10:19 AM CDT): Increase Effexor to 150 mg daily. Continue with counseling and Follow up in 2-3 weeks for further medication adjustments. Assessment & Plan (05/03/2024 10:12 AM CDT): Patient agreeable to Effexor 75 mg daily. Continue counseling. Follow up 2-3 weeks for further medication adjustments. 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 Severe obesity (BMI 35.0-39.9) with comorbidity 06/20/2022 Assessment & Plan (02/12/2025 5:39 PM CDT): >>ASSESSMENT AND PLAN FOR MORBID OBESITY WITH BODY MASS INDEX OF 40.0-49.9 ([facility]) WRITTEN ON 02/27/2024 4:21 PM BY MAXINE MONTANA MD Patient was started on phentermine for weight loss. Patient reports pediatric cardiology approved medication. She denies any side effects. No longer on tirzepatide due to cost. Agreeable to increase topiramate to 50 mg twice daily. Discussed medication side effects. Recommended 20 g of protein with each meal, increase fiber/vegetables, water prior to every meal. Recommended structured exercise regimen 3-4 times a week Contact with and suspected e xposure to environmental tobacco smoke 06/24/2015 Resolved Problems Problem Noted Date Diagnosed Date Resolved Date ERRONEOUS ENCOUNTER--DISREGARD 07/17/2025 07/17/2025 Acute gastroenteritis 09/25/20242024 Brain concussion 05/31/2024 08/07/2024 Assessment & Plan (06/14/2024 10:02 AM CDT): Symptoms resolved Assessment & Plan (05/31/2024 12:30 PM CDT): Discussed with patient to limit electronics as can cause headache and double vision. Rest in a dark quiet room when having headaches. Discussed it can take up 6 weeks to heal from a concussion. Discussed red flags or having worsening symptoms go to the ED Patient signed KYLE to get records from [facility] Patient completed [employer] concussion form- score 15. - scanned into the computer Recurrent acute otitis media 09/16/2011 10/12/2011 ETD (eustachian tube dysfunction) 09/16/2011 08/07/2024 Encounters Date Type Department Care Team Description 08/15/[address] [phone] Edi Lantigua DO Patient Communication; Hospital Follow Up 08/15/2025 Telephone [facility] Nuclear Medicine [place] [address] [place] [address] Ehsan Dixon, WIAA confirm appt 08/14/[address] [phone] Edi Lantigua DO Hospital Follow Up 08/14/2025 Results Follow-Up [address] [phone] Edi Lantigua DO COMPREHENSIVE METABOLIC PANEL, D-DIMER 08/07/2025 2:00 PM [employer] Office Visit [address] [phone] Edi Lantigua DO Cellulitis of chest wall (Primary Dx); Severe obesity (BMI 35.0-39.9) with comorbidity (CMS/HCC); Gastroesophageal reflux disease with esophagitis, unspecified whether hemorrhage; Elevated d-dimer 08/07/[address] [phone] Edi Lantigua DO Severe obesity (BMI 35.0-39.9) with comorbidity (CMS/HCC) 08/06/2025 External Device Data [facility]STRA[facility] Provider, Abstract 08/05/2025 External Device Data [facility] Provider, Abstract 08/05/2025 External Device Data [facility] Provider, Abstract 08/05/[address] [phone] Edi Lantigua DO Provider Call 08/05/2025 Results Follow-Up [address] [phone] Edi Lantigua DO CBC WITH DIFFERENTIAL, COMPREHENSIVE METABOLIC PANEL, LIPASE, Additional followed-up results: 7 08/04/2025 9:20 AM [employer] Office Visit [address] [phone] Edi Lantigua DO Encounter for routine adult health examination with abnormal findings (Primary Dx); Injury of left foot, initial encounter; Hypoplastic left heart syndrome; Fontan circulation present; Shortness of breath; Prediabetes; Nausea and vomiting, unspecified vomiting type; Functional diarrhea; Anxiety state; Blood type A+; Acute migraine 08/04/2025 Patient Outreach [address] [phone] [facility] 08/04/2025 Results Follow-Up [address] [phone] Edi Lantigua DO XR CHEST PA AND LATERAL 2 VW 08/03/2025 12:22 PM [employer] - 08/03/2025 1:49 PM [employer] Emergency [facility] Emergency Medicine [address] [place] [phone] Contusion of left foot including toes, initial encounter (Primary Dx); Superficial incisional infection of surgical site Discharge Disposition: Home or Self Care 08/03/2025 Travel 08/01/2025 12:15 PM CDT Ancillary Procedure [address] [phone] Edi Lantigua DO Shortness of breath 08/01/2025 11:00 AM CDT Office Visit [address] [phone] Edi Lantigua DO Shortness of breath (Primary Dx); Allergic reaction to adhesive; Cellulitis of chest wall; Acute diarrhea; Acute migraine 07/29/2025 10:00 AM CDT Office Visit [facility] [address] [phone] Alexsandra Knowles FNP Localized bacterial infection of skin (Primary Dx); PTSD (post-traumatic stress disorder); Anxiety state; Nonsuicidal self-injury (CMS/HCC); History of drug overdose- S/r trazodone; Influenza vaccination declined 07/29/2025 External Device Data [facility] ABSTRACTION Provider, Abstract 07/29/2025 External Device Data [facility] Provider, Abstract 07/23/2025 3:00 PM CDT Office Visit [facility] [address] [place] [address] Valeria Jorge, Hypoxia (Primary Dx); Fall, initial encounter 07/23/2025 9:45 AM CDT Video Visit [facility] [address] [place] [address] Maria Sánchez, ICT QUALITY ASSURANCE ENGINEER Visit for wound check (Primary Dx); Status post Fontan operation; Dizziness; Fall, initial encounter 07/23/2025 Patient Self-Triage [facility] [address] [place] [address] 07/23/2025 Patient Self-Triage [facility] [address] [place] [address] 07/23/2025 Patient Self-Triage [facility] [address] [place] [address] 07/23/2025 Patient Self-Triage [facility] [address] [place] [address] 07/22/[address] [facility] [address] [phone] Edi Lantigua, DO suture infection concern (Patient indicates chest suture is ooozing green and she is vomiting. Spoke with Cindy Singh RN - she recommended patient contact ER for care as they did the sutures.) 07/20/[address] [phone] Edi Lantigua DO Severe obesity (BMI 35.0-39.9) with comorbidity (CMS/HCC) 07/17/2025 11:20 AM CDT Office Visit [address] [phone] ERRONEOUS ENCOUNTER--DISREGARD (Primary Dx) 07/15/[address] [phone] Edi Lantigua DO Provider Call 07/14/2025 Orders Only [facility] Admitting [address] [place] [phone] Aziza Estrada MD Status post Fontan procedure (Primary Dx) 07/14/[address] [phone] Edi Lantigua DO Moderate episode of recurrent major depressive disorder (CMS/HCC); Anxiety state; PTSD (post-traumatic stress disorder) 07/11/2025 12:00 PM CDT Clinical Support [address] [phone] Hypoplastic left heart syndrome (Primary Dx) 07/11/2025 Orders Only [address] [phone] Provider, Abstract 07/11/[address] [phone] Edi Lantigua DO Referral Request 07/11/[address] [phone] Edi Lantigua DO Provider Call 07/10/[address] [phone] Edi Lantigua DO Provider Call; Needs Orders Written 07/08/2025 External Device Data [facility] ABSTRACTION Provider, Abstract 07/08/2025 External Device Data [facility] ABSTRACTION Provider, Abstract 07/08/2025 External Device Data [facility] ABSTRACTION Provider, Abstract 07/02/2025 Patient Outreach [address] [phone] [facility] 06/25/2025 Results Follow-Up [address] [phone] Emmie Maria LPN COMPREHENSIVE METABOLIC PANEL, CBC WITH DIFFERENTIAL 06/24/2025 Orders Only Initial Department [address] [place] [address] Dr VERDIN: [place] [address] Provider, Historical 06/23/2025 1:20 PM CDT Office Visit [address] [phone] Edi Lantigua DO Fontan circulation present (Primary Dx); Hypoplastic left heart syndrome; Severe obesity (BMI 35.0-39.9) with comorbidity (CMS/HCC) 06/20/2025 Orders Only [address] [phone] Provider, Abstract 06/13/[address] [phone] Edi Lantigua DO Medication Problem 06/11/2025 Patient Outreach [address] [phone] Baldemar Pizano APRN CoCM Psychiatric Recommendations 06/10/[address] [phone] Edi Lantigua DO Cough 06/10/2025 Results Follow-Up [address] [phone] Edi Lantigua DO RESPIRATORY PATHOGEN PCR PANEL 06/09/2025 11:00 AM CDT Office Visit [address] [phone] Edi Lantigua DO Fontan circulation present (Primary Dx); Hypoplastic left heart syndrome; Respiratory illness; Acute cough; Moderate episode of recurrent major depressive disorder (CMS/HCC); Anxiety state; PTSD (post-traumatic stress disorder) 06/09/2025 Patient Outreach [address] [phone] [facility] 06/03/2025 11:20 AM CDT Office Visit [address] [phone] Alexsandra Knowles FNP Viral upper respiratory infection (Primary Dx); Hypoplastic left heart syndrome 06/03/2025 Nurse Triage [address] [phone] Edi Lantigua DO 05/20/2025 Medication Prior Auth Encounter [facility] Prescription Management Dept [address] [place] [address] [place] [address] Kd Zuniga, PHARMACIST from Last 3 Months Immunizations Immunization Administration Dates Next Due (ACTHIB/HIBERIX)(2 MOS-5 YRS /6 WKS-4 YRS) HAEMOPHILUS INFLUENZAE TYPE B VACCINE (HIB), PRP-T CONJUGATE, 4 DOSE, 0.5 ML IM 10/06/2005 (ADACEL/BOOSTRIX)(10 YR UP) TDAP VACCINE, 0.5ML, IM 06/28/2016 (GARDASIL 9)(9-45 YRS) HUMAN PAPILLOMAVIRUS VACCINE, TYPES 6, 11, 16, 18, 31, 33, 45, 52, 58, NONAVALENT (9VHPV), 2 OR 3 DOSE, IM 09/21/2022,05/03/2022,03/21/2022 (HAVRIX/VAQTA)(12 MO-18 YRS) HEPATITIS A VACCINE 0.5 ML PED/ADOL 2 DOSE, IM 08/04/2011,07/12/2007 (KINRIX/QUADRACEL)(4 - 6 YRS ) DIPHTHERIA, TETANUS TOXOIDS AND ACELLULAR PERTUSSIS VACCINE, POLIO, INACTIVATED (DTAP-IPV) (PF) IM 08/04/2011 (M-M-R II/PRIORIX)(12 MO UP) MEASLES, MUMPS AND RUBELLA VIRUS VACCINE, 0.5 ML IM/SUBCUT 08/04/2011,10/06/2005 (MENACTRA)(9 MO-55 YR) MENIN GOCOCCAL POLYSACCHARIDE A, C, Y AND W-135 DIPTHERIA TOXOID CONJUGATE VACCINE, (PF), 0.5ML, IM 03/21/2022 (PEDIARIX)(6 WKS-6 YRS) DIPT HERIA, TETANUS TOXOIDS, ACELLULAR PERTUSSIS, HEPATITIS B, AND INACTIVATED POLIOVIRUS VACCINE (EJOH-PMKV-HDT), 0.5ML, IM 01/11/2005,2004 (PREVNAR 20)(6 WKS UP) PNEUM OCOCCAL CONJUGATE VACCINE 20-VALENT (PCV20), POLYSACCHARIDE [id number] CONJUGATE, ADJUVANT 0.5 ML (PF) IM 05/24/2024 (VARIVAX)(12 MOS UP)VARICELL A VIRUS VACCINE (PF) 0.5 ML, SUB CUT 08/04/2011,10/06/2005 DTaP, Unspecified Formulation 03/14/2005 Dt Dtp Dtap Vaccine 01/11/2006,01/11/2005,2004 HIB, Unspecified Formulation 01/11/2005,10/28/19 05 Hepatitis B Vaccine 01/11/2005,2004 Hepatitis B Vaccine, Unspeci fied Formulation 03/14/2005 INFLUENZA VACCINE QUADRIVALE NT 2-49 YRS NASAL 07/02/2015 INFLUENZA VACCINE QUADRIVALE NT 6 MOS UP PF IM 07/26/2019,08/18/2017,06/28/2016,09/19 IPV/OPV 01/11/2005,2004 Influenza Seasonal Unspecifi ed Formulation IM 07/01/2014 Influenza Vaccine Nasal 07/02/2015 Meningococcal A Conjugate Vaccine IM 06/28/2016 Meningococcal MCV4, Unspecif ied Formulation 06/28/2016 Pneumococcal Polysaccharide Vacc 23-daylin IM SCHIP 06/16/2008 Pneumococcal vaccine, unspec ified formulation 01/11/2006,03/14/2005,01/11/2005,10/18 Poliovirus Vaccine, Unspecif ied Formulation 03/14/2005 Td(adult) Unspecified Formulation 06/28/2016 Family History Medical History Relation Name Comments Depression Father Everton High Cholesterol Father Ever[place] Hypertension Father [place] Diabetes Maternal Grandfather Hypertension Maternal Grandfather Diabetes Maternal Grandmother Hypertension Maternal Grandmother Depression Mother Hilary Drug Abuse Mother Hilary Diabetes Paternal Grandfather High Cholesterol Paternal Grandfather Hypertension Paternal Grandfather Stroke Paternal Grandfather Asthma Paternal Grandmother Cancer Paternal Grandmother Hypertension Paternal Grandmother Diabetes Sister 1 Hannah T1DM Thyroid Disease Sister 1 Hannah Autoimmune H ypothyroidism Healthy Sister 2 Taeler Learning Disabilities Sister 2 Taeler Relation Name Status Comments Brother in house f delmer 2011 Father Everton Alive Maternal Grandfather Other Maternal Grandmother Other Mother Hilary Alive Paternal Grandfather Other Paternal Grandmother Other Sister 1 Hannah Alive Sister 2 Taeler Alive Social History Tobacco Use Types Packs/Day Years Used Date Smoking Tobacco: Former Cigarettes Passive Smoke Exposure: Past Smokeless Tobacco: Never Tobacco Cessation:Counseling Given: Not Answered Alcohol Use Standard Drinks/Week Comments Never 0 [...] worry about transportation for future doctor visits, curing pickling packer medication, etc.? 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:52 PM [employer] Gender Identity Not on file Sexual Orientation Not on file Occupation Industry Job Start Date Job End Date Not on file Not on file Not on file Not on file Last Filed Vital Signs Vital Sign Reading Time Taken Comments Blood Pressure 128/82 08/07/2025 2:20 PM [employer] Pulse 86 08/07/2025 2:20 PM [employer] Temperature 36.3 C (97.4 F) 08/07/2025 2:20 PM [employer] Respiratory Rate 16 08/07/2025 2:20 PM [employer] Oxygen Saturation 98% 08/07/2025 2:20 PM [employer] Room Air Inhaled Oxygen Concentration - - Weight 103.2 kg (227 lb 9.6 oz) 08/07/2025 2:20 PM [employer] Height 170.2 cm (5' 7 ) 08/07/2025 2:20 PM [employer] Body Mass Index 35.65 08/07/2025 2:20 PM [employer] Plan of Treatment Upcoming Encounters Date Type Department Care Team (Late st Contact Info) Description 08/20/2025 11:20 AM [employer] Office Visit [facility] [address] [phone] Alexsandra Knowles FNP [address] [phone] 11/05/2025 10:40 AM [employer] Office Visit [facility] [address] [phone] Edi Lantigua DO [address] [phone] Health Maintenance Due Date Last Done Comments CHLAMYDIA SCREENING (ANNUAL) 11-24 YEARS 06/20/2025 06/20/2024 CERVICAL CANCER SCREENING 2025 HPV/Cotest (21-29) 2025 PAP SMEAR 2025 DTAP/TDAP/TD VACCINES (7 - T d or Tdap) 06/28/2026 06/28/2016, 06/28/2016, 08/04/2011, Additional history exists Preventative Visit-Managed Medicaid 08/05/2026 08/04/2025, 08/28/2024, 12/21/2020 HEPATITIS B VACCINES Completed 03/14/2005, 01/11/2005, 01/11/2005, Additional history exists HPV VACCINES Completed 09/21/2022, 0811/2021, 03/21/2022 INFLUENZA VACCINE Completed 08/15/2025, , 08/18/2017, Additional history exists Medical Devices Implanted Type Area Interventional Technologist Device Identifier Shelf Expiration Date Model / Serial / Lot Barrier Gelfilm [id number] - Sna Implanted:Qty : 1 on 07/09/2015 by Devin Owne MD [employer]hesion Barrier Right: Ear PFIZER- PHARM 08/31/2015 [id number] / NA / [id number] Description:NOT AN IMPLANT- absorbable Explanted Type Area Interventional Technologist Device Identifier Shelf Expiration Date Model / Serial / Lot Ear Tube Explanted:Qty: 1 on 07/09/2015 by Devin Owen MD Right: Ear Description:Removed and disc arded Procedures Procedure Name Priority Date/Time Associated Diagnosis Comments D-DIMER Routine 08/12/2025 11:05 AM [employer] Elevated d-dimer COMPREHENSIVE METABOLIC PANEL Routine 08/12/2025 11:05 AM [employer] Cellulitis of chest wall TSH Routine 08/04/2025 10:23 AM [employer] Anxiety state LIPID RFLX Routine 08/04/2025 10:23 AM [employer] Prediabetes HEMOGLOBIN A1C Routine 08/04/2025 10:23 AM [employer] Prediabetes SEDIMENTATION RATE Routine 08/04/2025 10 :23 AM [employer] Nausea and vomiting, unspecified vomiting type C-REACTIVE PROTEIN Routine 08/04/2025 10 :23 AM [employer] Nausea and vomiting, unspecified vomiting type D-DIMER Routine 08/04/2025 10:23 AM [employer] Fontan circulation present Shortness of breath AMYLASE Routine 08/04/2025 10:23 AM [employer] Prediabetes LIPASE Routine 08/04/2025 10:23 AM [employer] Prediabetes BRAIN NATRIURETIC PEPTIDE, BNP OR PROBNP Routine 08/04/2025 10:23 AM [employer] Hypoplastic left heart syndrome Fontan circulation present COMPREHENSIVE METABOLIC PANEL Routine 08/04/2025 10:23 AM [employer] Nausea and vomiting, unspecified vomiting type CBC WITH DIFFERENTIAL Routine 08/04/2025 10:23 AM [employer] Nausea and vomiting, unspecified vomiting type XR FOOT 3+ VW LEFT Stat 08/03/2025 12 :50 PM [employer] XR CHEST PA AND LATERAL 2 VW Routine 08/01/2025 12:07 PM CDT Shortness of breath EKG Routine 07/11/2025 12:22 PM CDT CBC WITH DIFFERENTIAL Routine 06/24/2025 1:21 PM CDT COMPREHENSIVE METABOLIC PANEL Routine 06/24/2025 1:21 PM CDT CARDIOPULMONARY REHAB REPORT 06/18/2025 2:35 PM CDT CL LT AND RT HEART CATH Routine 06/16/20 25 11:11 AM CDT RESPIRATORY PATHOGEN PCR PANEL Routine 06/09/2025 12:32 PM CDT 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 [facility] D-DIMER QUANT 0.35 <0.50 mcg/mL FEU [facility] Comment: Elevated D-dimer levels are associated with DIC, malignancies, inflammation, sepsis, surgery, trauma, and . A D-dimer result less than 0.5 mcg/mL FEU, in conjunction with a non-high clinical pre-test probability assessment model, excludes deep vein thrombosis and pulmonary embolism. However, since D-dimer values increase with age, the [employer] [employer] recommends an age-adjusted cut-off value in patients older than 50. The calculation for an age adjusted cut-off value is age (years) x 0.01 mcg/mL FEU. For example, the cut-off for a 70-year-old patient would be 70 x 0.01 mcg/mL FEU. For additional information, please refer to http://education.[employer]/faq/ZPI183 (This link is being provided for informational/educational purposes only.) Test Performed at: [facility] [address] [place] [address] John Martinez MD Blood 08/12/2025 11:0 5 AM [employer] 08/12/2025 11:05 AM [employer] Edi Lantigua HEMATOLOGY ORDERABLES Final R esult [facility] [phone] [facility] [address] [place] [address] * (ABNORMAL) COMPREHENSIVE METABOLIC PANEL (08/12/2025 11:05 AM [employer]) Only the most recent of3 resultswithin the time period is included. [facility] GLUCOSE 85 65 - 99 mg/dL [facility] Comment: Fasting reference interval BUN 12 7 - 25 mg/dL [facility] CREATININE 0.71 0.50 - 0.96 mg/dL [facility] GFR 124 > OR = 60 mL/min/1. 73m2 [facility] BUN/CREAT RATIO SEE NOTE: 6 - 22 (calc) [facility] Comment: Not Reported: BUN and Creatinine are within reference range. SODIUM 138 135 - 146 mmol/L [facility] POTASSIUM 3.7 3.5 - 5.3 mmol/L [facility] CHLORIDE 105 98 - 110 mmol/L [facility] CO2 20 20 - 32 mmol/L [facility] CALCIUM 10.0 8.6 - 10.2 mg/dL [facility] TOTAL PROTEIN 7.8 6.1 - 8.1 g/dL [facility] ALBUMIN 4.8 3.6 - 5.1 g/dL [facility] GLOBULIN 3.0 1.9 - 3.7 g/dL (calc) [facility] ALBUMIN/GLOBULIN RATIO 1.6 1.0 - 2.5 (calc) [facility] BILIRUBIN TOTAL 0.9 0.2 - 1.2 mg/dL [facility] ALKALINE PHOSPHATASE 67 31 - 125 U/L [facility] AST 25 10 - 30 U/L [facility] ALT 34(H) 6 - 29 U/L [facility] Comment: Test Performed at: [facility] [address] John Martinez MD Blood 08/12/2025 11:0 5 AM [employer] 08/12/2025 11:05 AM [employer] us Edi Lantigua DO CHEMISTRY ORDERABLES Final Re [facility]ult [facility] [phone] [facility] [address] * (ABNORMAL) LIPID RFLX (08/04/2025 10:23 AM [employer]) CHOLESTEROL 130 <200 mg/dL [facility] HDL 44(L) > OR = 50 mg/dL [facility] TRIGLYCERIDE 128 <150 mg/dL [facility] LDL CALCULATED 65 mg/dL (calc) [facility] Comment: Reference range: <100 Desirable range <100 mg/dL for primary prevention; <70 mg/dL for patients with CHD or diabetic patients with > or = 2 CHD risk factors. LDL-C is now calculated using the Antonio calculation, which is a validated novel method providing better accuracy than the Friedewald equation in the estimation of LDL-C. Desean SS et al. PATO. 2013;310(19): 0118-8945 (http://education.[employer]/faq/PQM157) CHOL/HDL RATIO 3.0 <5.0 (calc) [facility] NON-HDL CHOLESTEROL 86 <130 mg/dL (calc) [facility] Comment: For patients with diabetes plus 1 major ASCVD risk factor, treating to a non-HDL-C goal of <100 mg/dL (LDL-C of <70 mg/dL) is considered a therapeutic option. Test Performed at: [facility] [address] [place] [address] John Martinez MD Blood 08/04/2025 10:2 3 AM [employer] 08/04/2025 10:23 AM [employer] us Edi Lantigua DO CHEMISTRY ORDERABLES Final Re [facility]ult [facility] [phone] [address] * (ABNORMAL) CBC WITH DIFFERENTIAL (08/04/2025 10:23 AM [employer]) Only the most recent of2 resultswithin the time period is included. WBC 11.5(H) 3.8 - 10.8 Thousand/u L [facility] RBC 5.46(H) 3.80 - 5.10 Million/uL [facility] HEMOGLOBIN 15.6(H) 11.7 - 15.5 g/dL [facility] HEMATOCRIT 48.0(H) 35.0 - 45.0 % [facility] MCV 87.9 80.0 - 100.0 fL [facility] MCH 28.6 27.0 - 33.0 pg [facility] MCHC 32.5 32.0 - 36.0 g/dL [facility] Comment: For adults, a slight decrease in the calculated MCHC value (in the range of 30 to 32 g/dL) is most likely not clinically significant; however, it should be interpreted with caution in correlation with other red cell parameters and the patient's clinical condition. RDW 14.0 11.0 - 15.0 % [facility] PLATELETS 249 140 - 400 Thousand/u L [facility] MPV 13.5(H) 7.5 - 12.5 fL [facility] NEUTROPHIL ABSOLUTE 8,602(H) 1,500 - 7,800 cells/uL [facility] LYMPHOCYTE ABSOLUTE 1,909 850 - 3,900 cells/uL [facility] MONOCYTE ABSOLUTE 920 200 - 950 cells/uL [facility] EOSINOPHIL ABSOLUTE 0(L) 15 - 500 cells/uL [facility] BASOPHILS ABSOLUTE 69 0 - 200 cells/uL [facility] NEUTROPHIL 74.8 % [facility] LYMPHOCYTES 16.6 % [facility] MONOCYTE 8.0 % [facility] EOSINOPHILS 0.0 % [facility] BASOPHILS 0.6 % [facility] Comment: Test Performed at: [facility] [address] [place] [address] John Martinez MD Blood 08/04/2025 10:2 3 AM [employer] 08/04/2025 10:23 AM [employer] Edi Lantigua DO HEMATOLOGY ORDERABLES Final R esult [facility] [phone] [facility] [address] [place] [address] * SEDIMENTATION RATE (08/04/2025 10:23 AM [employer]) ESR (SEDIMENTATION RATE) 2 < OR = 20 mm/h [facility] Comment: Test Performed at: [facility] [address] [place] [address] John Martinez MD Blood 08/04/2025 10:2 3 AM [employer] 08/04/2025 10:23 AM [employer] Ediemma Lantigua DO HEMATOLOGY ORDERABLES Final R esult [facility] [phone] [facility] [address] [place] [address] * C-REACTIVE PROTEIN (08/04/2025 10:23 AM [employer]) Pathologist [facility] CRP <3.0 <8.0 mg/L [facility] Comment: Test Performed at: [facility] [place] [address] John Martinez MD Blood 08/04/2025 10:2 3 AM [employer] 08/04/2025 10:23 AM [employer] Edi Lantigua DO CHEMISTRY ORDERABLES Final Re [facility]ult [facility] [phone] [facility] [address] [place] [address] * TSH (08/04/2025 10:23 AM [employer]) Pathologist [facility] TSH 2.91 mIU/L [facility] Comment: Reference Range > or = 20 Years 0.40-4.50 Ranges First trimester 0.26-2.66 Second trimester 0.55-2.73 Third trimester 0.43-2.91 Test Performed at: [facility] [facility] [address] John Martinez MD Blood 08/04/2025 10:2 3 AM [employer] 08/04/2025 10:23 AM [employer] CHEMISTRY ORDERABLES Final Re [facility]ult [facility] [phone] [facility] [address] [place] [address] * (ABNORMAL) BRAIN NATRIURETIC PEPTIDE, BNP OR PROBNP (08/04/2025 10:23 AM [employer]) PROBNP, N TERMINAL 429(H) <125 pg/mL [facility] Comment: Test Performed at: [facility] [address] [facility] [place] [address] John Martinez MD Blood 08/04/2025 10:2 3 AM [employer] 08/04/2025 10:23 AM [employer] us EdiWeizoomvishnu BAL CHEMISTRY ORDERABLES Final Re sult [facility] [phone] [facility] [address] [place] [address] * LIPASE (08/04/2025 10:23 AM [employer]) LIPASE 38 7 - 60 U/L [facility] Comment: Test Performed at: [facility] [address] [facility] [place] [address] John Martinez MD Blood 08/04/2025 10:2 3 AM [employer] 08/04/2025 10:23 AM [employer] CHEMISTRY ORDERABLES Final Re sult [facility] [phone] [facility] [address] [facility] [place] [address] * HEMOGLOBIN A1C (08/04/2025 10:23 AM [employer]) HEMOGLOBIN A1C 5.3 <5.7 % [facility] Comment: For the purpose of screening for the presence of diabetes: <5.7% Consistent with the absence of diabetes 5.7-6.4% Consistent with increased risk for diabetes (prediabetes) > or =6.5% Consistent with diabetes This assay result is consistent with a decreased risk of diabetes. Currently, no consensus exists regarding use of hemoglobin A1c for diagnosis of diabetes in children. According to [place] [employer] (ADA) guidelines, hemoglobin A1c <7.0% represents optimal control in non- diabetic patients. Different metrics may apply to specific patient populations. Standards of Medical Care in Diabetes(ADA). ESTIMATED AVERAGE GLUCOSE (MG/DL) 105 mg/dL [facility] ESTIMATED AVERAGE GLUCOSE (MMOL/L) 5.8 mmol/L [facility] Comment: Test Performed at: [facility] [address] [place] [address] John Martinez MD Blood 08/04/2025 10:2 3 AM [employer] 08/04/2025 10:23 AM [employer] Edi Lantigua DO CHEMISTRY ORDERABLES Final Re sult Performing Organization Address [place]/[facility]/ZIP Co de Phone Number [facility] [phone] [facility] [address] [place] [address] * AMYLASE (08/04/2025 10:23 AM [employer]) Pathologist [facility] AMYLASE 28 21 - 101 U/L [facility] Comment: Test Performed at: [facility] [address] [place] [address] John Martinez MD Blood 08/04/2025 10:2 3 AM [employer] 08/04/2025 10:23 AM [employer] Edi Lantigua DO CHEMISTRY ORDERABLES Final Re [facility]ult [facility] [phone] [facility] [address] [place] [address] * XR FOOT 3+ VW LEFT (08/03/2025 12:50 PM [employer]) Anatomical Region Laterality Modality Ankle / Foot Computed Radiogr aphy 08/03/2025 12:5 0 PM [employer] Impressions 08/03/2025 1:02 PM [employer] IMPRESSION: Please see below. Exam: XR FOOT 3+ VW LEFT Date/Time of Exam: 08/03/2025 12:50 PM Reason For Exam: Injury. Diagnosis: See Reason for Exam. Comparison: March 18, 2025 FINDINGS: PA, lateral and oblique projections show no fracture or dislocation. Hallux valgus. Dorsal soft tissue edema. Narrative Procedure Note Gume Sylvester DO - 08/03/2025 IMPRESSION: Please see below. Exam: XR FOOT 3+ VW LEFT Date/Time of Exam: 08/03/2025 12:50 PM Reason For Exam: Injury. Diagnosis: See Reason for Exam. Comparison: March 18, 2025 FINDINGS: PA, lateral and oblique projections show no fracture or dislocation. Hallux valgus. Dorsal soft tissue edema. us Ciara Mary MD DIAGNOSTIC IMAGING ORDERABLES F inal Result * XR CHEST PA AND LATERAL 2 VW (08/01/2025 12:07 PM CDT) Anatomical Region Laterality Modality Chest Computed Radiogr aphy 08/01/2025 12:0 8 PM CDT Impressions 08/02/2025 10:13 AM CDT IMPRESSION: See below. Exam: XR CHEST PA AND LATERAL 2 VW Date/Time of Exam: 08/01/2025 12:07 PM Reason For Exam: See Diagnosis. Diagnosis: Shortness of breath. Prior: 05/01/2023 Findings: Prior median sternotomy. Unchanged vascular stent. Battery pack overlies the left upper chest. Cardiac silhouette is within normal limits. No focal consolidation, pleural effusion or pneumothorax. No acute osseous abnormality. Narrative Procedure Note Enrique Shoemaker, - 08/02/2025 IMPRESSION: See below. Exam: XR CHEST PA AND LATERAL 2 VW Date/Time of Exam: 08/01/2025 12:07 PM Reason For Exam: See Diagnosis. Diagnosis: Shortness of breath. Prior: 05/01/2023 Findings: Prior median sternotomy. Unchanged vascular stent. Battery pack overlies the left upper chest. Cardiac silhouette is within normal limits. No focal consolidation, pleural effusion or pneumothorax. No acute osseous abnormality. us Edi Lantigua DO DIAGNOSTIC IMAGING ORDERABLES Final Result * EKG (07/11/2025 12:22 PM CDT) us Abstract Provider ECG ORDERABLES Final Result [facility] CLIA# [id number] [address] [place] [address] * CARDIOPULMONARY REHAB REPORT (06/18/2025 2:35 PM CDT) us Edi Lantigua DO CARDIAC SERVICES ORDERABLES F inal Result * CL LT AND RT HEART CATH (06/16/2025 11:11 AM CDT) Abstract Provider FLUOROSCOPY ORDERABLES Final R esult * (ABNORMAL) RESPIRATORY PATHOGEN PCR PANEL (06/09/2025 12:32 PM CDT) COVID-19 PCR NOT DETECTED Not Detected 06/09/20 25 7:18 PM CDT [facility] Human Rhinovirus/En terovirus by PCR DETECTED(A) Not Detected 06/09/2025 7:18 PM CDT [facility] Upper Respiratory ENTIRE NASOPHARYNX / Unknown Collection / Unknown 06/09/2025 12:32 PM CDT 06/09/2025 5:11 PM CDT Narrative [facility] - 06/09/2025 7:18 PM CDT The Film Array Respiratory Panel (RP2.1) is a multiplex nucleic acid detection test for 22 targets. Viruses: Adenovirus Coronavirus HKU1, NL63, 229E, and OC43 COVID-19/Severe Acute Respiratory Syndrome Coronavirus 2 Influenza A with the following subtypes: H1, H1-2009, and H3 Influenza B Human Metapneumovirus Parainfluenza virus 1, 2, 3, and 4 Respiratory Syncytial virus (RSV) Rhinovirus/Enterovirus (cannot differentiate due to genetic similarities) Bacteria: Bordetella pertussis Bordetella parapertussis Chlamydophila pneumoniae Mycoplasma pneumoniae Edi Lantigua DO MICROBIOLOGY - GENERAL ORDERA BLES Final Result Performing Organization Address City/[facility]/ZIP Co de Phone Number [facility] [id number] [address] [place] [address] * GC/CHLAMYDIA, UROGENITAL (06/20/2024 10:30 AM CDT) CHLAMYDIA TRACHOMATIS RNA, TMA, UROGENITAL NOT DETECTED NOT DETECTED [facility] [place] NEISSERIA GONORRHOEAE RNA, TMA, UROGENITAL NOT DETECTED NOT DETECTED [facility] [place] COMMENT INFECTIOUS DISEASE [facility] [place] Comment: The analytical performance characteristics of this assay, when used to test SurePath(TM) specimens have been determined by [employer]. The modifications have not been cleared or approved by the FDA. This assay has been validated pursuant to the CLIA regulations and is used for clinical purposes. For additional information, please refer to https://education.[employer]/faq/LRD349 (This link is being provided for information/ educational purposes only.) Test Performed at: [facility] [address] [place] [address] John Martinez MD Urine (Urine, 1st catch) 06/20/2024 10:30 AM CDT 06/20/2024 11:07 PM CDT Lila LOWRY MICROBIOLOGY - GENERAL ORDERA BLES Final Result Performing Organization Address City/[facility]/ZIP Co de Phone Number [facility] [phone] [facility] [address] [place], [place] [address], [place] [address] from Last 3 Months or Most Recently Relevant to Health Maintenance Insurance [place] [employer] Express Care Teams Hotel Dining Room Cashier Relationship Specialty Start Date End Date Edi Lantigua DO [address] [place] [address] PCP - General Family Practice 08/06/24
--- OUTSIDE RECORDS SUMMARY | 2025-08-20 05:12 | XMS_ITS | Clinical Summary ---
Author Organization [facility] Address [address] [place] [address] Care Team Providers Care Information Security Name Role Phone Jeff Colon MD Primary Care Provider Allergies Active Allergy Reactions Criticality Noted Date Comments Amoxicillin Unknown 09/16/2011 Medications aspirin (UBALDO) 81 mg Oral Tab Take by mouth. Active lisinopriL (PRINIVIL) 10 mg tablet 10/16/2020 Active Active Problems Problem Noted Date Diagnosed Date Environmental tobacco smoke exposure 06/24/2015 Contact with and suspected e xposure to environmental tobacco smoke 06/24/2015 ETD (eustachian tube dysfunction) 09/16/2011 Resolved Problems Problem Noted Date Diagnosed Date Resolved Date Recurrent acute otitis media 09/16/2011 10/12/2011 Immunizations Immunization Administration Dates Next Due (ACTHIB/HIBERIX)(2 MOS-5 YRS /6 WKS-4 YRS) HAEMOPHILUS INFLUENZAE TYPE B VACCINE (HIB), PRP-T CONJUGATE, 4 DOSE, 0.5 ML IM 10/06/2005 (ADACEL/BOOSTRIX)(10 YR UP) TDAP VACCINE, 0.5ML, IM 06/28/2016 (HAVRIX/VAQTA)(12 MO-18 YRS) HEPATITIS A VACCINE 0.5 ML PED/ADOL 2 DOSE, IM 08/04/2011 (KINRIX/QUADRACEL)(4 - 6 YRS ) DIPHTHERIA, TETANUS TOXOIDS AND ACELLULAR PERTUSSIS VACCINE, POLIO, INACTIVATED (DTAP-IPV) (PF) IM 08/04/2011 (M-M-R II/PRIORIX)(12 MO UP) MEASLES, MUMPS AND RUBELLA VIRUS VACCINE, 0.5 ML IM/SUBCUT 08/04/2011,10/06/2005 (VARIVAX)(12 MOS UP)VARICELL A VIRUS VACCINE (PF) 0.5 ML, SUB CUT 08/04/2011,10/06/2005 Dt Dtp Dtap Vaccine 01/11/2006,01/11/2005,2004 HIB, Unspecified Formulation 01/11/2005,10/28/19 05 Hepatitis B Vaccine 01/11/2005,2004 INFLUENZA VACCINE QUADRIVALE NT 2-49 YRS NASAL 07/02/2015 INFLUENZA VACCINE QUADRIVALE NT 6 MOS UP PF IM 07/26/2019,08/18/2017,06/28/2016,09/19 IPV/OPV 01/11/2005,2004 Influenza Seasonal Unspecifi ed Formulation IM 07/01/2014 Influenza Vaccine Nasal 07/02/2015 Meningococcal A Conjugate Vaccine IM 06/28/2016 Pneumococcal Polysaccharide Vacc 23-daylin IM SCHIP 06/16/2008 Family History Medical History Relation Name Comments Depression Father Everton High Cholesterol Father [place]ton Hypertension Father [place] Diabetes Maternal Grandfather Hypertension Maternal Grandfather Diabetes Maternal Grandmother Hypertension Maternal Grandmother Depression Mother Hilary Drug Abuse Mother Hilary Diabetes Paternal Grandfather High Cholesterol Paternal Grandfather Hypertension Paternal Grandfather Stroke Paternal Grandfather Asthma Paternal Grandmother Cancer Paternal Grandmother Hypertension Paternal Grandmother Healthy Sister 1 Taeler Learning Disabilities Sister 1 Taeler Diabetes Sister 2 Hannah T1DM Thyroid Disease Sister 2 Hannah Autoimmune H ypothyroidism Relation Name Status Comments Brother in house f del[place] 2011 Father Everton Alive Maternal Grandfather Maternal Grandmother Mother Hilary Alive Paternal Grandfather Paternal Grandmother Sister 1 Taeler Alive Sister 2 Hannah Alive Social History Tobacco Use Types Packs/Day Years Used Date Smoking Tobacco: Passive [place]o [place] Exposure - Never Smoker Smokeless Tobacco: Never Comments No Sex and Gender Information Value Date Recorded Sex Assigned at Not on file 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 Gender Identity Not on file Sexual Orientation Not on file Occupation Industry Job Start Date Job End Date Not on file Not on file Not on file Not on file Last Filed Vital Signs Vital Sign Reading Time Taken Comments Blood Pressure 124/82 01/25/2021 4:18 PM CDT Pulse 93 01/25/2021 4:18 PM CDT Temperature 36.3 C (97.3 F) 01/25/2021 4:18 PM CDT Respiratory Rate 18 01/25/2021 4:18 PM CDT Oxygen Saturation 87% 01/25/2021 4:18 PM CDT Inhaled Oxygen Concentration - - Weight 109.5 kg (241 lb 6.4 oz) 01/25/2021 4:18 PM CDT Height 167.6 cm (5' 6 ) 01/25/2021 4:18 PM CDT Body Mass Index 38.96 01/25/2021 4:18 PM CDT Plan of Treatment Health Maintenance Due Date Last Done Comments HEPATITIS B VACCINES (3 of 3 - 3-dose series) 03/08/2005 01/11/2005, 2004 CHLAMYDIA SCREENING (ANNUAL) 11-24 YEARS 2015 HPV VACCINES (1 - 3-dose series) 2019 INFLUENZA VACCINE (#1) 2025 9, 08/18/2017, 06/28/2016, Additional history exists CERVICAL CANCER SCREENING 2025 HPV/Cotest (21-29) 2025 PAP SMEAR 2025 DTAP/TDAP/TD VACCINES (6 - T d or Tdap) 06/28/2026 06/28/2016, 08/04/2011, 01/11/2006, Additional history exists Medical Devices Implanted Type Area Gusset Folder Device Identifier Shelf Expiration Date Model / Serial / Lot Barrier Gelfilm [id number] [id number] - Sna Implanted:Qty : 1 on 07/09/2015 by Devin Owen MD at [facility] Adhesion Barrier Right: Ear PFIZER- PHARM 08/31/2015 [id number] / NA / [id number] Description:NOT AN IMPLANT- absorbable Explanted Type Area Gusset Folder Device Identifier Shelf Expiration Date Model / Serial / Lot Ear Tube Explanted:Qty: 1 on 07/09/2015 by Devin Owen MD at [facility] Right: Ear Description:Removed and disc arded Insurance [facility] MEDICAID Advance Directives For more information, please contact: [phone] * Full Code (Latest Code Status on File) Date Activated Date Inactivated Comments 07/09/2015 11:04 AM 07/09/2015 2:39 PM Care Teams Information Security Relationship Specialty Start Date End Date Jeff Colon MD PCP - General Pediatrics 05/26/15
--- OUTSIDE RECORDS SUMMARY | 2025-08-20 05:12 | XMS_ITS | Encounter Summary ---
Author Organization [facility] Address [address] [place] [address] Care Team Providers Care Plumber Maintenance Name Role Phone Edi Lantigua DO Primary Care Provider [phone] Encounter Details Date Type Department Care Team (Late st Contact Info) Description 10/18/2024 Results Follow-Up [address] [phone] Kirsty Bajwa FNP [address] [phone] URINE CULTURE Social History Tobacco Use Types Packs/Day Years Used Date Smoking Tobacco: Never Passive Smoke Exposure: Never Smokeless Tobacco: Never Alcohol Use Standard Drinks/Week Comments Never 0 (1 standard drink = 0.6 oz pur e alcohol) Feeling Safe Answer Date Recorded Are you in a relationship wi th someone who hurts you emotionally and/or physically? No 09/25/2024 Comments No Sex and Gender Information Value Date Recorded Sex Assigned at Not on file Legal Sex Female 3:52 PM SOLO MUSICIAN Gender Identity Not on file Sexual Orientation Not on file Occupation Industry Job Start Date Job End Date Not on file Not on file Not on file Not on file documented as of this encounter Plan of Treatment Upcoming Encounters Date Type Department Care Team (Late st Contact Info) Description 08/20/2025 11:20 AM SOLO MUSICIAN Office Visit [facility] [address] [phone] Alexsandra Knowles FNP [address] [phone] 11/05/2025 10:40 AM SOLO MUSICIAN Office Visit [facility] [address] [place] [phone] Edi Lantigua DO [address] [place] [phone] documented as of this encounter Visit Diagnoses Not on filedocumented in this encounter Additional Health Concerns Infection Onset Date Last Indicated Resolved Time R/O Respiratory 06/09/2025 06/09/2025 06/09/2025 7 :18 PM CDT RHINO/ENTEROVIRUS (Adult) 06/09/2025 06/09/2025 10:22 PM CDT documented as of this encounter Care Teams Plumber Maintenance Relationship Specialty Start Date End Date Edi Lantigua DO [address] [place] [phone] PCP - General Family Practice 08/06/24 documented as of this encounter
--- OUTSIDE RECORDS SUMMARY | 2025-08-20 05:12 | XMS_ITS | Encounter Summary ---
Author Organization [facility] Address [address] [place] [address] Care Team Providers Care Food Tester Name Role Phone Edi Lantigua DO Primary Care Provider [phone] Encounter Details Date Type Department Care Team (Late st Contact Info) Description 10/24/2024 Results Follow-Up [address] [phone] Edi Lantigua DO [address] [place] [phone] T4 FREE, THYROID PEROXIDASE ANTIBODY, TSH, HCG QUANTITATIVE, BLOOD Social History Tobacco Use Types Packs/Day Years [...] on file Legal Sex Female 3:52 PM BONSAI TENDER Gender Identity Not on file Sexual Orientation Not on file Occupation Industry Job Start Date Job End Date Not on file Not on file Not on file Not on file documented as of this encounter Plan of Treatment Upcoming Encounters Date Type Department Care Team (Late st Contact Info) Description 08/20/2025 11:20 AM BONSAI TENDER Office Visit [facility] [address] [phone] Alexsandra Knowles FNP [address] [place] [phone] 11/05/2025 10:40 AM BONSAI TENDER Office Visit [facility] [address] [phone] Edi Lantigua DO [address] [place] [phone] documented as of this encounter Visit Diagnoses Not on filedocumented in this encounter Additional Health Concerns Infection Onset Date Last Indicated Resolved Time R/O Respiratory 06/09/2025 06/09/2025 06/09/2025 7 :18 PM CDT RHINO/ENTEROVIRUS (Adult) 06/09/2025 06/09/2025 10:22 PM CDT documented as of this encounter Care Teams Food Tester Relationship Specialty Start Date End Date Edi Lantigua DO [address] [place] [phone] PCP - General Family Practice 08/06/24 documented as of this encounter
--- OUTSIDE RECORDS SUMMARY | 2025-08-20 05:12 | XMS_ITS | Encounter Summary ---
Author Organization [facility] Address [address] [place] [address] Care Team Providers Care Cardiac Care Nurse Name Role Phone Jeff Colon MD Primary Care Provider Encounter Details Date Type Department Care Team (Latest Contact Info) Description 09/14/2006 Outpatient [facility] [address] 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
--- OUTSIDE RECORDS SUMMARY | 2025-08-20 05:12 | XMS_ITS | Encounter Summary ---
Author Organization [facility] Address [address] [place] [address] Care Team Providers Care Hand Tier Name Role Phone Jeff Colon MD Primary Care Provider Encounter Details Date Type Department Care Team (Latest Contact Info) Description 2004 Outpatient Historical [facility] [address] [phone] Barbara Townsend MD [address] [place] [address] OTITIS MEDIA NOS (Primary Dx); VOMITING ALONE; HEART DISEASE NOS Social History Tobacco Use Types Packs/Day Years Used Date Smoking Tobacco: Never Assessed Comments Unknown Sex and Gender Information Value Date Recorded Sex Assigned at Not on file Legal Sex Female 3:16 AM CANDY COOKER HELPER Gender Identity Not on file Sexual Orientation Not on file documented as of this encounter Plan of Treatment Not on file documented as of this encounter Visit Diagnoses Diagnosis Unspecified otitis media- Primary Vomiting alone Heart disease, unspecified documented in this encounter Care Teams Hand Tier Relationship Specialty Start Date End Date Jeff Colon MD PCP - General Pediatrics 05/26/15 documented as of this encounter
--- OUTSIDE RECORDS SUMMARY | 2025-08-20 05:12 | XMS_ITS | Encounter Summary ---
Author Organization [facility] Address [address] [place] [address] Care Team Providers Care Powder Coat Painter Name Role Phone Jeff Colon MD Primary Care Provider Encounter Details Date Type Department Care Team (Latest Contact Info) Description 01/26/2005 Outpatient Historical [facility] Medicine [address] [phone] Barbara Townsend MD [address] [place] [address] ACUTE BRONCHITIS (Primary Dx); CONJUNCTIVITIS NOS Social History Tobacco Use Types Packs/Day Years Used Date Smoking Tobacco: Never Assessed Comments Unknown Sex and Gender Information Value Date Recorded Sex Assigned at Not on file Legal Sex Female 3:16 AM TMH TEACHER Gender Identity Not on file Sexual Orientation Not on file documented as of this encounter Plan of Treatment Not on file documented as of this encounter Visit Diagnoses Diagnosis Acute bronchitis- Primary Conjunctivitis unspecified Conjunctivitis, unspecified documented in this encounter Care Teams Powder Coat Painter Relationship Specialty Start Date End Date Jeff Colon MD PCP - General Pediatrics 05/26/15 documented as of this encounter
--- OUTSIDE RECORDS SUMMARY | 2025-08-20 05:13 | XMS_ITS | Encounter Summary ---
Author Organization [facility] Address [address] [place] [address] Care Team Providers Care Granulator Machine Operator Name Role Phone Edi Lantigua DO Primary Care Provider [phone] Reason for Visit * Reason Onset Date Comments confirm appt 08/15/2025 Encounter Details Date Type Department Care Team (Late st Contact Info) Description 08/15/2025 Telephone [facility] Medicine [place] [phone] [facility] [place] [address] Ehsan Dixon, NMAA confirm appt Social History Tobacco Use Types Packs/Day Years [...] worry about transportation for future doctor visits, roller picker medication, etc.? No 2024 Housing Stability [...] on file Legal Sex Female 3:52 PM ROOF SHINGLER Gender Identity Not on file Sexual Orientation Not on file Occupation Industry Job Start Date Job End Date Not on file Not on file Not on file Not on file documented as of this encounter Miscellaneous Notes * Telephone Encounter - Em Chavez RT - 08/15/2025 8:28 AM CST Confirmed appt for 08/18 @ 1100 Discussed prep and instructions with pt. SHINGLER documented in this encounter Plan of Treatment Upcoming Encounters Date Type Department Care Team (Late st Contact Info) Description 08/20/2025 11:20 AM ROOF SHINGLER Office Visit [facility] [address] [phone] Alexsandra Knowles FNP [address] [phone] 11/05/2025 10:40 AM ROOF SHINGLER Office Visit [facility] [address] [phone] Edi Lantigua DO [address] [place] [phone] documented as of this encounter Visit Diagnoses Not on filedocumented in this encounter Care Teams Granulator Machine Operator Relationship Specialty Start Date End Date Edi Lantigua DO [address] [place] [phone] PCP - General Family Practice 08/06/24 documented as of this encounter
--- OUTSIDE RECORDS SUMMARY | 2025-08-20 05:13 | XMS_ITS | Encounter Summary ---
Author Organization [facility] Address [address] [place] [address] Care Team Providers Care Supervisor Dry Cleaning Name Role Phone Edi Lantigua DO Primary Care Provider [phone] Reason for Visit * Reason Comments Patient Communication Hospital Follow Up Encounter Details Date Type Department Care Team ([facility] st Contact Info) Description 08/15/2025 Telephone [facility] [address] [phone] Edi Lantigua DO [address] [place] [phone] Patient Communication; Hospital Follow Up Social History Tobacco Use [...] worry about transportation for future doctor visits, order picker/assembler medication, etc.? 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:52 PM ENERGY AND SUSTAINABILITY MANAGER Gender Identity Not on file Sexual Orientation Not on file Occupation Industry Job Start Date Job End Date Not on file Not on file Not on file Not on file documented as of this encounter Miscellaneous Notes * Telephone Encounter - Genna Reyes - 08/18/2025 3:28 PM CST Spoke with pt and will keep upcoming HFU with Leda. PT is needing referral to [place] with Nela Guevara. Will discuss more at upcoming HFU. No further questions. GY AND SUSTAINABILITY MANAGER * Telephone Encounter - Dayna Ayala - 08/18/2025 12:16 PM CST Copied from [facility] #[id number]. Topic: Reschedule/Cancel Appointment/Late Arrival >> Aug 18, 2025 12:12 PM Dayna Cho wrote: Caller Name: Mari Winkler Callback Number: Telephone Information: Call Notes: Patient is requesting a sooner HFU; states she is hungry and in a lot a pain. Caller is requesting to reschedule/cancel a hospital follow up. Is patient requesting to schedule? Yes Reschedule the appointment using the regular Cancel/Reschedule reasons. Could appointment be rescheduled within 5 calendar days of hospital discharge? [facility] GY AND SUSTAINABILITY MANAGER * Telephone Encounter - Genna Reyes - 08/15/2025 3:07 PM CST 08/15/2025 3:07 PM Spoke with pt and canceled HFU on 08/19/25 as pt wanted to keep her HFU on 08/20/25. Pt has anotherov in [place] on 08/19/25. No further questions. Genna GY AND SUSTAINABILITY MANAGER * Telephone Encounter - Leilani Anderson - 08/15/2025 3:03 PM ENERGY AND SUSTAINABILITY MANAGER Copied from [facility] #[id number]. Topic: CPA Information Request >> Aug 15, 2025 3:01 PM Leilani Ferreira wrote: Caller is returning phone call from clinic. Caller Name: Mari Winkler Patient/Caregiver Callback Number: Telephone Information: Clinic Did Not Leave Note In Chart Call Notes: Patient/Caller returning call, no note documented with instructions from clinic. Transferred to Backline/CONSTRUCTION SECRETARY Line and Sandra answered call. GY AND SUSTAINABILITY MANAGER documented in this encounter Plan of Treatment Upcoming Encounters Date Type Department Care Team (Late st Contact Info) Description 08/20/2025 11:20 AM ENERGY AND SUSTAINABILITY MANAGER Office Visit [facility] [place] [address] [phone] Alexsandra Knowles FNP [address] [phone] 11/05/2025 10:40 AM ENERGY AND SUSTAINABILITY MANAGER Office Visit [facility] [place] [address] [phone] Edi Lantigua DO [address] [place] [phone] documented as of this encounter Visit Diagnoses Not on filedocumented in this encounter Care Teams Supervisor Dry Cleaning Relationship Specialty Start Date End Date Edi Lantigua DO [address] [place] [phone] PCP - General Family Practice 08/06/24 documented as of this encounter
--- OUTSIDE RECORDS SUMMARY | 2025-08-20 05:13 | XMS_ITS | Encounter Summary ---
Author Organization [facility] Address [address] [place] [address] Care Team Providers Care Parenting Skills Instructor Name Role Phone Edi Lantigua DO Primary Care Provider [phone] Reason for Visit * Reason Comments Hospital Follow Up Encounter Details Date Type Department Care Team ([facility] st Contact Info) Description 08/14/2025 Telephone [facility] [address] [phone] Edi Lantigua DO [address] [place] [phone] Hospital Follow Up Social History Tobacco [...] worry about transportation for future doctor visits, pick and shovel worker medication, etc.? 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:52 PM SECURITIES ADVISER Gender Identity Not on file Sexual Orientation Not on file Occupation Industry Job Start Date Job End Date Not on file Not on file Not on file Not on file documented as of this encounter Miscellaneous Notes * Telephone Encounter - Genna Reyes - 08/14/2025 3:48 PM CST 08/14/2025 3:48 PM Spoke with pt and rescheduled with Alexsandra for HFU as requested. PT does not want to see a Male L TACKER. No further questions. Genna RITIES ADVISER * Telephone Encounter - Dhaval Zarco - 08/14/2025 12:39 PM CST Copied from [facility] #[id number]. Topic: Established Patient Care >> Aug 14, 2025 12:36 PM Dhaval Cho wrote: Is the patient established with a [facility] provider? Yes, select appropriate option in Discharge Facility SmartList [facility] Callback Number: [phone] Call Notes: hospital f/u Patient is Rising Risk Where was the patient discharged from? Hospital Is there availability to schedule the patient within 5 calendar days of discharge? No, in person appointment not available or call came after 5 days of discharge RITIES ADVISER documented in this encounter Plan of Treatment Upcoming Encounters Date Type Department Care Team (Late st Contact Info) Description 08/20/2025 11:20 AM SECURITIES ADVISER Office Visit [address] [phone] Alexsandra Knowles FNP [address] [phone] 11/05/2025 10:40 AM SECURITIES ADVISER Office Visit [facility] [address] [phone] Edi Lantigua DO [address] [place] [phone] documented as of this encounter Visit Diagnoses Not on filedocumented in this encounter Care Teams Parenting Skills Instructor Relationship Specialty Start Date End Date Edi Lantigua DO [address] [place] [phone] PCP - General Family Practice 08/06/24 documented as of this encounter
--- OUTSIDE RECORDS SUMMARY | 2025-08-20 05:13 | XMS_ITS | Encounter Summary ---
Author Organization [facility] Address [address] [place] [address] Care Team Providers Care It Service Continuity Supervisor Name Role Phone Edi Lantigua DO Primary Care Provider [phone] Encounter Details Date Type Department Care Team (Latest Contact Info) Description 08/14/2025 Results Follow-Up [facility] [address] [phone] Edi Lantigua DO [address] [phone] COMPREHENSIVE METABOLIC PANEL, D-DIMER Social History Tobacco Use Types Packs/Day Years [...] worry about transportation for future doctor visits, cloth picker medication, etc.? No 2024 Housing Stability [...] on file Legal Sex Female 3:52 PM BARREL DRILLER Gender Identity Not on file Sexual Orientation Not on file Occupation Industry Job Start Date Job End Date Not on file Not on file Not on file Not on file documented as of this encounter Plan of Treatment Upcoming Encounters Date Type Department Care Team (Late st Contact Info) Description 08/20/2025 11:20 AM BARREL DRILLER Office Visit [facility] [address] [phone] Alexsandra Knowles FNP [address] [phone] 11/05/2025 10:40 AM BARREL DRILLER Office Visit [facility] [address] [phone] Edi Lantigua DO [address] [place] [phone] documented as of this encounter Visit Diagnoses Not on filedocumented in this encounter Care Teams It Service Continuity Supervisor Relationship Specialty Start Date End Date Edi Lantigua DO [address] [place] [phone] PCP - General Family Practice 08/06/24 documented as of this encounter
--- NOTE | 2025-08-20 10:16 | DCPLANNER ---
Referral Sent to [facility]
== END 2025-08-19 20:28 | disposition home or self-care (01) ==
PROVIDERS: Emergency Medicine; Emergency Provider Physician Assistant; PCP Family Medicine
DX: K80.20 Calculus of gallbladder without cholecystitis without obstruction (principal); R11.2 Nausea with vomiting, unspecified; Z79.82 Long term (current) use of aspirin; F17.290 Nicotine dependence, other tobacco product, uncomplicated
CPT/HCPCS: 36415; 71045; 74177; 80053; 81001; 83690; 83880; 84484; 84703; 85025; 85610; 85730; 93005; 99285

== ENCOUNTER 2025-09-03 16:06 | Emergency (ER) | payer MEDICAID, SELFPAY ==
[2025-07-16 09:11] VITALS: BP 126/92; BMI 38.7
--- OUTSIDE RECORDS SUMMARY | 2025-09-03 10:40 | XMS_ITS | Encounter Summary ---
Author Organization [facility] Address [address] [place] [address] Care Team Providers Care Straw Hat Brim Raiser Operator Name Role Phone JesEdi mares Primary Care Provider [phone] Reason for Visit * Reason Comments Nasal Congestion Cough Encounter Details Date Type Department Care Team (Late st Contact Info) Description 09/03/2025 10:40 AM GAME TRAPPER Office Visit [facility] [place] [address] [phone] Alexsandra Knowles FNP [address] [phone] Viral URI with cough (Primary Dx) Social History Tobacco Use Types [...] worry about transportation for future doctor visits, knot picker cloth medication, etc.? 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:52 PM GAME TRAPPER Gender Identity Not on file Sexual Orientation Not on file Occupation Industry Job Start Date Job End Date Not on file Not on file Not on file Not on file documented as of this encounter Last Filed Vital Signs Vital Sign Reading Time Taken Comments Blood Pressure 106/68 09/03/2025 10:39 AM GAME TRAPPER Pulse 100 09/03/2025 10:39 AM GAME TRAPPER Temperature 36.3 C (97.4 F) 09/03/2025 10:39 AM GAME TRAPPER Respiratory Rate 22 09/03/2025 10:3 9 AM GAME TRAPPER Oxygen Saturation 87% 09/03/2025 10: 39 AM GAME TRAPPER Patient declined oxygen. Inhaled Oxygen Concentration - - Weight 98.5 kg (217 lb 3.2 oz) 09/03/2025 10:39 AM GAME TRAPPER Height 170.2 cm (5' 7 ) 09/03/2025 10:3 9 AM GAME TRAPPER Body Mass Index 34.02 09/03/2025 10:39 AM GAME TRAPPER documented in this encounter Progress Notes * Alexsandra Knowles FNP - 09/03/2025 10:56 AM CST HISTORY OF PRESENT ILLNESS: Mari Winkler is a 20 y.o. year-old female who presents for Chief Complaint Patient presents with Nasal Congestion Cough HPI Pt presents for URI symptoms x 3 - 4 days. She is taking Tylenol with limited relief. Pt took a home covid test yesterday, and it was negative. No known sick contacts. REVIEW OF SYSTEMS: Review of Systems Constitutional: Positive for malaise/fatigue. Negative for fever. HENT: Positive for congestion and sore throat. Negative for ear discharge and ear pain. Eyes: Negative for discharge. Respiratory: Positive for cough. Negative for sputum production, shortness of breath and wheezing. Skin: Negative for rash. Neurological: Positive for headaches. Current Outpatient Medications on File Prior to Visit Medication Sig Dispense Refill metoclopramide HCl (REGLAN) 10 mg tablet Take 10 mg by mouth 4 times daily before meals and at bedtime. Zepbound 7.5 mg/0.5 mL Pen Injector INJECT 7.5MG SUBCUTANEOUSLY EVERY 7 DAYS 4 mL 11 pantoprazole (PROTONIX) 20 mg Tablet, Delayed Release (E.C.) Take 1 Tablet (20 mg) by mouth daily. 30 Tablet 1 famotidine (PEPCID) 40 mg tablet Take 40 mg by mouth every 24 hours. diclofenac sodium (VOLTAREN) 1 % gel 4 Grams by See Admin Instructions route. hydrOXYzine HCL (ATARAX) 25 mg tablet Take 1 Tablet by mouth every 6 hours. methocarbamoL (ROBAXIN) 750 mg tablet Take 750 mg by mouth 3 times daily. sertraline (ZOLOFT) 50 mg tablet Take 50 mg by mouth daily. rivaroxaban (Xarelto) 10 mg Tablet Take 10 mg by mouth daily with supper. Ventolin HFA 90 mcg/actuation inhaler Take 2 Puffs by inhalation. ergocalciferol (VITAMIN D2) 50,000 unit capsule Take 1 Capsule by mouth every 7 days. benzonatate (TESSALON) 200 mg capsule Take 1 Capsule (200 mg) by mouth 3 times daily as needed for Cough. 30 Capsule 1 ondansetron (ZOFRAN ODT) 4 mg Tablet, Rapid Dissolve Take 1 Tablet (4 mg) by mouth every 8 hours asneeded for Nausea/Emesis. Dissolve tablet on top of tongue, then swallow with saliva. 30 Tablet 3 zolpidem (AMBIEN) 5 mg tablet Take 1 Tablet (5 mg) by mouth nightly as needed for Insomnia. 30 Tablet 1 losartan (COZAAR) 100 mg tablet Take 1 Tablet by mouth daily. (Patient taking differently: Take 25 Tablets by mouth daily.) acetaminophen (TYLENOL) 325 mg tablet Take 325 mg by mouth every 8 hours. No current facility-administered medications on file prior to visit. 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 05/21/2025 Prediabetes 08/28/2024 Status post Fontan operation 08/08/2024 Missed period 06/14/2024 Episode of recurrent major depressive disorder 05/03/2024 Anxiety state 05/03/2024 PTSD (post-traumatic stress disorder) 05/03/2024 Vitamin D deficiency 02/27/2024 Insulin resistance 11/03/2023 Overview Note: 2 hour fasting glucose 10/24/23 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 Severe obesity (BMI 35.0-39.9) with comorbidity (CMS/HCC) 06/20/2022 Contact with and suspected exposure to environmental tobacco smoke 06/24/2015 Past Medical History: Diagnosis Date Brain concussion 05/31/2024 CAD (coronary artery disease) CVD (cerebrovascular disease) 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 disability Headache Heart disease, unspecified HLHS (hypoplastic left heart syndrome) Obesity peds (BMI >=95 percentile) 06/20/2022 Otitis media PTSD (post-traumatic stress disorder) Past Surgical History: Procedure Laterality Date HX HEART CATHETERIZATION 03/2005 Coil embolization of L-SVC by Dr Padilla for low saturations HX HEART SURGERY 04/[address] Jose at [facility] HX HEART SURGERY 2004 Bidirectional Ken/Josefina Closure HX HEART SURGERY 2004 HLHS, s/p Brigido/Ken./Fontan HX TYMPANOSTOMY FL ADENOIDECTOMY PRIMARY <AGE 12 Bilateral 02/03/2016 ADENOIDECTOMY performed by Devin Owen MD at [facility] [place] [place] MYRINGOPLASTY Right 07/09/2015 MYRINGOPLASTY performed by Devin Owen MD at [facility] [place] VENTILATING TUBE RMVL REQUIRING GENERAL ANES Right 07/09/2015 EAR PRESSURE EQUALIZATION TUBE REMOVAL performed by Devin Owen MD at [facility] [place] Social History Socioeconomic History Marital status: Single Occupational History Employer: [employer] Tobacco Use Smoking status: Former Types: Cigarettes Passive exposure: Past Smokeless tobacco: Never Vaping Use Vaping status: Every Day Substances: Nicotine, Flavoring Substance and Sexual Activity Alcohol use: Never Drug use: Never Sexual activity: Yes Partners: Male control/protection: None Health-Related Social Needs Food Insecurity: Low Risk (08/03/2025) Food Insecurity Eating less because can't pay for food: No Transportation Needs: Low Risk (08/03/2025) Transportation Needs Worry about transportation for doctor visits / knot picker cloth meds: No Domestic Concerns: Not At Risk (08/03/2025) Feeling Safe Patient has indicated abuse: : No Housing Stability: Low Risk (08/03/2025) Housing Stability Struggle to pay rent or mortgage: No PHYSICAL EXAM: BP 106/68 Pulse 100 Temp 97.4 ??F (36.3 ??C) (Temporal) Resp 22 Ht 5' 7 (1.702 m) Wt 98.5 kg (217 lb 3.2 oz) LMP 08/04/2025 (Approximate) SpO2 (!) 87% Comment: Patient declined oxygen. BMI 34.02 kg/m?? Physical Exam Constitutional: General: She is not in acute distress. Appearance: She is ill-appearing. She is not toxic-appearing or diaphoretic. HENT: Right Ear: A middle ear effusion is present. Tympanic membrane is not erythematous or bulging. Left Ear: A middle ear effusion is present. Tympanic membrane is not erythematous or bulging. Nose: Congestion and rhinorrhea present. Rhinorrhea is clear. Mouth/Throat: Lips: [place]. Mouth: Mucous membranes are moist. No oral lesions. Pharynx: Postnasal drip present. Eyes: Conjunctiva/sclera: Conjunctivae normal. Cardiovascular: Rate and Rhythm: Normal rate and regular rhythm. Pulmonary: Effort: Pulmonary effort is normal. Breath sounds: Normal breath sounds. Skin: General: Skin is warm and dry. Neurological: Mental Status: She is alert. Psychiatric: Thought Content: Thought content normal. PROCEDURES: Procedures LABS: No results found for this visit on 09/03/25 (from the past week). ASSESSMENT/PLAN: Problem List Items Addressed This Visit None Visit Diagnoses Viral URI with cough - Primary Relevant Medications fluticasone propionate (FLONASE) 50 mcg/spray [place], Suspension nasal inhaler Self-care and usual course discussed RTC precautions given Proper use of Flonase discussed ESSENCE Leal TRAPPER documented in this encounter Plan of Treatment Upcoming Encounters Date Type Department Care Team (Late st Contact Info) Description 11/05/2025 10:40 AM GAME TRAPPER Office Visit [facility] [address] [place] [phone] Edi Lantigua DO [address] [place] [address] [phone] documented as of this encounter Visit Diagnoses Diagnosis Viral URI with cough- Primary Acute upper respiratory infections of unspecified site documented in this encounter Care Teams Straw Hat Brim Raiser Operator Relationship Specialty Start Date End Date Edi Lantigua DO [address] [place] [phone] PCP - General Family Practice 08/06/24 documented as of this encounter
[2025-09-03 16:11] VITALS: BP 109/80; PULSE 109; TEMP 36.4; O2SAT 85; BMI 33.3
--- OUTSIDE RECORDS SUMMARY | 2025-09-03 16:28 | XMS_ITS | Encounter Summary ---
Author Organization [facility] Address [address] [place] [address] Care Team Providers Care Fire Protection Equipment Technician Name Role Phone Edi Lantigua DO Primary Care Provider [phone] Encounter Details Date Type Department Care Team (Late st Contact Info) Description 09/02/2025 External Device Data STL ABSTRACTION Provider, Abstract NO ADDRESS ON FILE Social History Tobacco Use Types Packs/Day Years [...] worry about transportation for future doctor visits, pickup driver medication, etc.? 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:52 PM MARKET ASSET PROTECTION MANAGER Gender Identity Not on file Sexual Orientation Not on file Occupation Industry Job Start Date Job End Date Not on file Not on file Not on file Not on file documented as of this encounter Plan of Treatment Upcoming Encounters Date Type Department Care Team (Late st Contact Info) Description 11/05/2025 10:40 AM MARKET ASSET PROTECTION MANAGER Office Visit [facility] [address] [place] [phone] Edi Lantigua DO [address] [place] [phone] documented as of this encounter Visit Diagnoses Not on filedocumented in this encounter Care Teams Fire Protection Equipment Technician Relationship Specialty Start Date End Date Edi Lantigua DO [address] [place] [phone] PCP - General Family Practice 08/06/24 documented as of this encounter
--- OUTSIDE RECORDS SUMMARY | 2025-09-03 16:28 | XMS_ITS | Encounter Summary ---
Author Organization [facility] Address [address] [place] [address] Care Team Providers Care Bottom Sander Name Role Phone Edi Lantigua DO Primary Care Provider [phone] Encounter Details Date Type Department Care Team (Late st Contact Info) Description 08/04/2025 Results Follow-Up [facility] [place] [address] [place] [phone] Edi Lantigua DO [address] [phone] XR CHEST PA AND LATERAL [...] worry about transportation for future doctor visits, orange picking supervisor medication, etc.? 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:52 PM HORIZONTAL DRILL OPERATOR Gender Identity Not on file Sexual Orientation Not on file Occupation Industry Job Start Date Job End Date Not on file Not on file Not on file Not on file documented as of this encounter Plan of Treatment Upcoming Encounters Date Type Department Care Team (Late st Contact Info) Description 11/05/2025 10:40 AM HORIZONTAL DRILL OPERATOR Office Visit [facility] [address] [place] [phone] Edi Lantigua DO [address] [place] [address] [phone] documented as of this encounter Visit Diagnoses Not on filedocumented in this encounter Care Teams Bottom Sander Relationship Specialty Start Date End Date Edi Lantigua DO [address] [place] [phone] PCP - General Family Practice 08/06/24 documented as of this encounter
--- OUTSIDE RECORDS SUMMARY | 2025-09-03 16:28 | XMS_ITS | Encounter Summary ---
Author Organization [facility] Address [address] [place] [address] Care Team Providers Care Media Professional Name Role Phone Edi Lantigua DO Primary Care Provider [phone] Encounter Details Date Type Department Care Team [...] worry about transportation for future doctor visits, picking machine operator medication, etc.? 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 BOARD OPERATOR Gender Identity Not on file Sexual Orientation Not on file Occupation Industry Job Start Date Job End Date Not on file Not on file Not on file Not on file documented as of this encounter Plan of Treatment Upcoming Encounters Date Type Department Care Team (Late st Contact Info) Description 11/05/2025 10:40 AM DIMMER BOARD OPERATOR Office Visit [facility] [address] [place] [phone] Edi Lantigua DO [address] [place] [phone] documented as of this encounter Visit Diagnoses Not on filedocumented in this encounter Care Teams Media Professional Relationship Specialty Start Date End Date Edi Lantigua DO [address] [place] [phone] PCP - General Family Practice 08/06/24 documented as of this encounter
--- OUTSIDE RECORDS SUMMARY | 2025-09-03 16:28 | XMS_ITS | Encounter Summary ---
Author Organization [facility] Address [address] [place] [address] Care Team Providers Care Unit Manager Convenience Stores Name Role Phone Edi Lantigua DO Primary Care Provider [phone] Reason for Visit * Reason Comments Hospital Follow Up Encounter Details Date Type Department Care Team (Late st Contact Info) Description 05/07/2025 Telephone [facility] [address] [phone] Edi Lantigua DO [address] [place] [phone] Hospital Follow Up Social History Tobacco [...] on file Legal Sex Female 3:52 PM MEDIA RELATIONS MANAGER Gender Identity Not on file Sexual Orientation Not on file Occupation Industry Job Start Date Job End Date Not on file Not on file Not on file Not on file documented as of this encounter Miscellaneous Notes * Telephone Encounter - Dhaval Zarco - 05/07/2025 1:25 PM CDT Copied from [facility] #[id number]. Topic: Established Patient Care >> May 07, 2025 1:23 PM Dhaval Cho wrote: Is the patient established with a [facility] provider? Yes, select appropriate option in Discharge Facility SmartList Caller Name: Mari Winkler Callback Number: [phone] (mobile) Call Notes: patient calling to schedule [...] st Contact Info) Description 11/05/2025 10:40 AM MEDIA RELATIONS MANAGER Office Visit [facility] [address] [phone] Edi Lantigua DO [address] [phone] documented as of this encounter Visit Diagnoses Not on filedocumented in this encounter Additional Health Concerns Infection Onset Date Last Indicated Resolved Time R/O Respiratory 06/09/2025 06/09/2025 06/09/2025 7 :18 PM CDT RHINO/ENTEROVIRUS (Adult) 06/09/2025 06/09/2025 10:22 PM CDT documented as of this encounter Care Teams Unit Manager Convenience Stores Relationship Specialty Start Date End Date Edi Lantigua DO [address] [place] [phone] PCP - General Family Practice 08/06/24 documented as of this encounter
--- OUTSIDE RECORDS SUMMARY | 2025-09-03 16:29 | XMS_ITS | Clinical Summary ---
Author Organization [facility] Address [address] [place] [address] Care Team Providers Care Official Court Reporter Name Role Phone Jeff Colon MD Primary [...] on file Legal Sex Female 3:16 AM ROUNDER HAND Gender Identity Not on file Sexual Orientation [...] history exists Medical Devices Implanted Type Area Damper Fitter Device Identifier Shelf Expiration Date Model / Serial / Lot Barrier [id number] - Sna Implanted:Qty : 1 on 07/09/2015 by Devin Owen MD at [facility] Adhesion Barrier Right: Ear PFIZER- PHARM 08/31/2015 [id number] / NA / [id number] Description:NOT AN IMPLANT- absorbable Explanted Type Area Damper Fitter Device Identifier Shelf Expiration Date Model / Serial / Lot Ear Tube Explanted:Qty: 1 on 07/09/2015 by Devin Owen MD at [facility] Right: Ear Description:Removed and disc arded Insurance [facility] MEDICAID Advance Directives For more information, please contact: [phone] * Full Code (Latest Code Status on File) Date Activated Date Inactivated Comments 07/09/2015 11:04 AM 07/09/2015 2:39 [address] Care Teams Official [address] Reporter Relationship Specialty Start Date End Date Jeff Colon MD PCP - General Pediatrics 05/26/15
--- OUTSIDE RECORDS SUMMARY | 2025-09-03 16:29 | XMS_ITS | Encounter Summary ---
Author Organization [facility] Address 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 Gender Identity Not on file Sexual Orientation Not on file Occupation Industry Job Start Date Job End Date Not on file Not on file Not on file Not on file documented as of this encounter Plan of Treatment Upcoming Encounters Date Type Department Care Team (Late st Contact Info) Description 11/05/2025 10:40 AM DISTILLERY LABORER Office Visit [facility] [address] [place] [address] [phone] Edi Lantigua DO [address] [place] [address] [phone] documented as of this encounter Visit Diagnoses Not on filedocumented in this encounter Additional Health Concerns Infection Onset Date Last Indicated Resolved Time R/O Respiratory 06/09/2025 06/09/2025 06/09/2025 7 :18 PM CDT RHINO/ENTEROVIRUS (Adult) 06/09/2025 06/09/2025 10:22 PM CDT documented as of this encounter Care Teams Concrete Pipe Maker Relationship Specialty Start Date End Date Edi Lantigua DO [address] [place] [phone] PCP - General Family Practice 08/06/24 documented as of this encounter
--- OUTSIDE RECORDS SUMMARY | 2025-09-03 16:29 | XMS_ITS | Encounter Summary ---
Author Organization [facility] Address [address] [place] [address] Care Team Providers Care Respite Coordinator Name Role Phone Edi Lantigua DO Primary Care Provider [phone] Encounter Details Date Type Department Care Team (Late st Contact Info) Description 10/24/2024 Results Follow-Up [address] [phone] Edi Lantigua DO [address] [place] [phone] T4 FREE, THYROID PEROXIDASE ANTIBODY, TSH, [...] on file Legal Sex Female 3:52 PM ENTRY LEVEL INSTALLATION TECHNICIAN Gender Identity Not on file Sexual Orientation Not on file Occupation Industry Job Start Date Job End Date Not on file Not on file Not on file Not on file documented as of this encounter Plan of Treatment Upcoming Encounters Date Type Department Care Team (Late st Contact Info) Description 11/05/2025 10:40 AM ENTRY LEVEL INSTALLATION TECHNICIAN Office Visit [facility] [address] [phone] Edi Lantigua DO [address] [place] [phone] documented as of this encounter Visit Diagnoses Not on filedocumented in this encounter Additional Health Concerns Infection Onset Date Last Indicated Resolved Time R/O Respiratory 06/09/2025 06/09/2025 06/09/2025 7 :18 PM CDT RHINO/ENTEROVIRUS (Adult) 06/09/2025 06/09/2025 10:22 PM CDT documented as of this encounter Care Teams Respite Coordinator Relationship Specialty Start Date End Date Edi Lantigua DO [address] [place] [phone] PCP - General Family Practice 08/06/24 documented as of this encounter
--- OUTSIDE RECORDS SUMMARY | 2025-09-03 16:29 | XMS_ITS | Encounter Summary ---
Author Organization [facility] Address [address] [place] [address] Care Team Providers Care Cold Storage Worker Name Role Phone Jeff Colon MD Primary Care Provider Encounter Details Date Type Department Care Team (Latest Contact Info) Description 09/14/2006 Outpatient Historical [facility] [address] [place] [address] AMBULANCE, [facility] Poisoning by Other Antihypertensive Agents (Primary Dx) Social History Tobacco Use Types Packs/Day Years Used Date Smoking Tobacco: Never Assessed Comments Unknown Sex and Gender Information Value Date Recorded Sex Assigned at Not on file Legal Sex Female 3:16 AM BRICK BAKER Gender Identity Not on file Sexual Orientation Not on file documented as of this encounter Plan of Treatment Not on file documented as of this encounter Visit Diagnoses Diagnosis Poisoning by other antihypertensive agents(972.6)- Primary Poisoning by other antihypertensive agents documented in this encounter Care Teams Cold Storage Worker Relationship Specialty Start Date End Date Jeff Colon MD PCP - General Pediatrics 05/26/15 documented as of this encounter
--- OUTSIDE RECORDS SUMMARY | 2025-09-03 16:29 | XMS_ITS | Encounter Summary ---
Author Organization [facility] Address [address] [place] [address] Care Team Providers Care Loft Worker Pile Driving Name Role Phone Jeff Colon MD Primary Care Provider Encounter Details Date Type Department Care Team (Late st Contact Info) Description 11/26/2007 Outpatient Historical [facility] [place] [address] [phone] Frederick Owen MD [address] [place] [phone] Social History Tobacco Use Types Packs/Day Years Used Date Smoking Tobacco: Never Assessed Comments Unknown Sex and Gender Information Value Date Recorded Sex Assigned at Not on file Legal Sex Female 3:16 AM LOADER HELPER SORTING YARD Gender Identity Not on file Sexual Orientation Not on file documented as of this encounter Plan of Treatment Not on file documented as of this encounter Visit Diagnoses Not on filedocumented in this encounter Care Teams Loft Worker Pile Driving Relationship Specialty Start Date End Date Jeff Colon MD PCP - General Pediatrics 05/26/15 documented as of this encounter
--- OUTSIDE RECORDS SUMMARY | 2025-09-03 16:29 | XMS_ITS | Encounter Summary ---
Author Organization [facility] Address [address] [place] [address] Care Team Providers Care Wood Casket Maker Name Role Phone Jeff Colon MD Primary Care Provider [phone] Encounter Details Date Type Department Care Team (Latest Contact Info) Description 01/26/2005 Outpatient Historical [facility] [address] [phone] Barbara Townsend MD [address] [place] [phone] ACUTE BRONCHITIS (Primary Dx); CONJUNCTIVITIS NOS Social History Tobacco Use Types Packs/Day Years Used Date Smoking Tobacco: Never Assessed Comments Unknown Sex and Gender Information Value Date Recorded Sex Assigned at Not on file Legal Sex Female 3:16 AM MEDICAL LABORATORY SCIENTIST Gender Identity Not on file Sexual Orientation Not on file documented as of this encounter Plan of Treatment Not on file documented as of this encounter Visit Diagnoses Diagnosis Acute bronchitis- Primary Conjunctivitis unspecified Conjunctivitis, unspecified documented in this encounter Care Teams Wood Casket Maker Relationship Specialty Start Date End Date Jeff Colon MD PCP - General Pediatrics 05/26/15 documented as of this encounter
--- OUTSIDE RECORDS SUMMARY | 2025-09-03 16:29 | XMS_ITS | Encounter Summary ---
Author Organization [facility] Address [address] [place] [address] Care Team Providers Care Personal Coach Name Role Phone Jeff Colon MD Primary Care Provider Encounter Details Date Type Department Care Team (Latest Contact Info) Description 2004 Outpatient Historical [facility] Medicine [address] [phone] Barbara Townsend MD [address] [place] [id number] OTITIS MEDIA NOS (Primary Dx); VOMITING ALONE; HEART DISEASE NOS Social History Tobacco Use Types Packs/Day Years Used Date Smoking Tobacco: Never Assessed Comments Unknown Sex and Gender Information Value Date Recorded Sex Assigned at Not on file Legal Sex Female 3:16 AM INDUSTRIAL ENGINEERING INTERN Gender Identity Not on file Sexual Orientation Not on file documented as of this encounter Plan of Treatment Not on file documented as of this encounter Visit Diagnoses Diagnosis Unspecified otitis media- Primary Vomiting alone Heart disease, unspecified documented in this encounter Care Teams Personal Coach Relationship Specialty Start Date End Date Jeff Colon MD PCP - General Pediatrics 05/26/15 documented as of this encounter
--- OUTSIDE RECORDS SUMMARY | 2025-09-03 16:29 | XMS_ITS | Encounter Summary ---
Author Organization [facility] Address [address] [place] [address] Care Team Providers Care Transit Coach Operator Name Role Phone Edi Lantigua DO Primary Care Provider [phone] Reason for Visit * Reason Comments Provider Call Encounter Details Date Type Department Care Team ([facility] st Contact Info) Description 07/11/2025 Telephone [facility] Medicine [place] [address] [phone] Edi Lantigua DO [address] [place] [phone] Provider Call Social History Tobacco Use [...] worry about transportation for future doctor visits, oyster picker medication, etc.? No 2024 Housing Stability [...] on file Legal Sex Female 3:52 PM FIREMAN Gender Identity Not on file Sexual Orientation [...] - 07/11/2025 9:58 AM CDT Copied from [facility] #[id number]. Topic: [id number] Call >> Jul 11, 2025 9:51 AM Leilani Ferreira wrote: Caller is requesting to speak with Clinical Care Team. Caller Name: Veronica with [facility] Cardiology Normanna Callback Number: [phone] Is the caller a Physician, Nurse Practitioner or Physician Hedis Review Nurse? No Call Notes: Veronica is requesting to speak with a nurse regarding labs. Is this addressing an immediate patient care need? Yes Transferred to Backline/SPICE CLEANER Line and Danni answered call. No answer on PCN, transferred to SPICE CLEANER line instead. documented in this encounter Plan of Treatment Upcoming Encounters Date Type Department Care Team (Late st Contact Info) Description 11/05/2025 10:40 AM FIREMAN Office Visit [facility] [address] [place] [phone] Edi Lantigua DO [address] [place] [phone] documented as of this encounter Visit Diagnoses Not on filedocumented in this encounter Care Teams Transit Coach Operator Relationship Specialty Start Date End Date Edi Lantigua DO [address] [place] [address] PCP - General Family Practice 08/06/24 documented as of this encounter
--- OUTSIDE RECORDS SUMMARY | 2025-09-03 16:29 | XMS_ITS | Clinical Summary ---
Author Organization [facility] Address [address] [facility] Attn: [place] [address] Care Team Providers Care Whiting Can Worker Name Role Phone Edi Lantigua Primary Care Provider [phone] Allergies Active Allergy Reactions Criticality Noted Date [...] EVERY 7 DAYS 4 mL 11 Active metoclopramide HCl (REGLAN) 10 mg tabletIndicati ons:Nausea and vomiting, unspecified vomiting type Take 10 mg by mouth 4 times daily before meals and at bedtime. Active fluticasone propionate (FLONASE) 50 mcg/spray [place], Suspension nasal inhalerIndicat ions:Viral URI with cough Administer 2 Sprays in each nostril daily. 16 Gram Active tirzepatide, weight loss, (Zepbound) 15 mg/0.5 mL Pen InjectorIndica tions:Severe obesity (BMI 35.0-39.9) with comorbidity (CMS/HCC) Inject 0.5 mL (15 mg) by subcutaneous injection every 7 days. 2 mL 11 025 2024 Discontinued mupirocin (BACTROBAN) 2 % OintmentIndica tions:Localize d bacterial infection of skin Apply to affected area daily for 7 days. 22 Gram 025 2024 doxycycline hyclate (VIBRAMYCIN) 100 mg capsule Take 1 Capsule (100 mg) by mouth 2 times daily for 7 days. 14 Capsule 025 2024 Additional Information Patient not taking.Reported on [...] for 3 days. 12 Capsule 025 2024 Active Problems Problem Noted Date Diagnosed Date Calculus of gallbladder with out cholecystitis without obstruction 08/20/2025 Blood type A+ 08/04/2025 Nonsuicidal self-injury 07/29/2025 [...] she will need to speak with her floor attendant as well. Episode of recurrent major depressive [...] will think about it. . Following [facility] Suicide prevention hotline number provided. Education provided. [...] (05/03/2024 10:12 AM CDT): Uncontrolled. Managed by [facility] Suicide prevention hotline number provided. Education provided. [...] with other people?: Not difficult at all (05/03/24 0900) Anxiety state 05/03/2024 Assessment & Plan (06/14/2024 [...] OBESITY WITH BODY MASS INDEX OF 40.0-49.9 ([facility]) WRITTEN ON 02/27/2024 4:21 PM BY MAXINE [...] Encounters Date Type Department Care Team Description 09/03/2025 10:40 AM ALTERNATIVE ENERGY TECHNICIAN Office Visit [address] [phone] Alexsandra Knowles FNP Viral URI with cough (Primary Dx) 09/02/2025 External Device Data STL ABSTRACTION Provider, Abstract 09/02/2025 External Device Data STL ABSTRACTION Provider, Abstract 08/25/2025 10:00 AM ALTERNATIVE ENERGY TECHNICIAN Office Visit [address] [phone] Alexsandra Knowles FNP 08/20/2025 11:20 AM ALTERNATIVE ENERGY TECHNICIAN Office Visit [address] [phone] Alexsandra Knowles, ESSENCE Calculus of gallbladder without cholecystitis without obstruction (Primary Dx); Nausea and vomiting, unspecified vomiting type 08/15/[address] [phone] Edi Lantigua DO Patient Communication; Hospital Follow Up 08/15/2025 Telephone [facility] Nuclear Medicine [place] [address] [place] [address] Ehsan Dixon, [facility] confirm appt 08/14/[address] [phone] Edi Lantigua DO Hospital Follow Up 08/14/2025 Results Follow-Up [address] [address] Edi Lantigua DO COMPREHENSIVE METABOLIC PANEL, D-DIMER 08/07/2025 2:00 PM ALTERNATIVE ENERGY TECHNICIAN Office Visit [address] [phone] Edi Lantigua DO Cellulitis of chest wall (Primary Dx); Severe obesity (BMI 35.0-39.9) with comorbidity (CMS/HCC); Gastroesophageal reflux disease with esophagitis, unspecified whether hemorrhage; Elevated d-dimer 08/07/[address] [place] [address] Edi Lantigua DO Severe obesity (BMI 35.0-39.9) with comorbidity (CMS/HCC) 08/06/2025 External Device Data STL ABSTRACTION Provider, Abstract 08/05/2025 External Device Data STL ABSTRACTION Provider, Abstract 08/05/2025 External Device Data STL ABSTRACTION Provider, Abstract 08/05/[address] [address] Edi Lantigua DO Provider Call 08/05/2025 Results Follow-Up [address] [phone] Edi Lantigua DO CBC WITH DIFFERENTIAL, COMPREHENSIVE METABOLIC PANEL, LIPASE, Additional followed-up results: 7 08/04/2025 9:20 AM ALTERNATIVE ENERGY TECHNICIAN Office Visit [address] [phone] Edi Lantigua DO Encounter for routine adult health examination with abnormal findings (Primary Dx); Injury of left foot, initial encounter; Hypoplastic left heart syndrome; Fontan circulation present; Shortness of breath; Prediabetes; Nausea and vomiting, unspecified vomiting type; Functional diarrhea; Anxiety state; Blood type A+; Acute migraine 08/04/2025 Patient Outreach [address] [phone] [facility] 08/04/2025 Results Follow-Up [address] [address] dEi Lantigua DO XR CHEST PA AND LATERAL 2 VW 08/03/2025 12:22 PM ALTERNATIVE ENERGY TECHNICIAN - 08/03/2025 1:49 PM ALTERNATIVE ENERGY TECHNICIAN Emergency [facility] Emergency Medicine [address] [place] [phone] Contusion of left foot including toes, initial encounter (Primary Dx); Superficial incisional infection of surgical site Discharge Disposition: Home or Self Care 08/03/2025 Travel 08/01/2025 12:15 PM CDT Ancillary Procedure [address] [address] Edi Lantigua DO Shortness of breath 08/01/2025 11:00 AM CDT Office Visit [address] [address] Edi Lantigua DO Shortness of breath (Primary Dx); Allergic reaction to adhesive; Cellulitis of chest wall; Acute diarrhea; Acute migraine 07/29/2025 10:00 AM CDT Office Visit [address] [phone] Alexsandra Knowles FNP Localized bacterial infection of skin (Primary Dx); PTSD (post-traumatic stress disorder); Anxiety state; Nonsuicidal self-injury (CMS/HCC); History of drug overdose- S/r trazodone; Influenza vaccination declined 07/29/2025 External Device Data STL ABSTRACTION Provider, Abstract 07/29/2025 External Device Data STL ABSTRACTION Provider, Abstract 07/23/2025 3:00 PM CDT Office Visit [facility] [place] [address] [facility] [address] [place] [address] Valeria Jorge DO Hypoxia (Primary Dx); Fall, initial encounter 07/23/2025 9:45 AM CDT Video Visit [facility] [address] [place] [address] Maria Sánchez NP Visit for wound check (Primary Dx); Status post Fontan operation; Dizziness; Fall, initial encounter 07/23/2025 Patient Self-Triage [facility] [address] [place] [address] 07/23/2025 Patient Self-Triage [facility] [address] [place] [address] 07/23/2025 Patient Self[facility]riage [facility] [address] [place] [address] 07/23/2025 Patient Self-Triage [facility] [address] [place] [address] 07/22/[address] [phone] Edi Lantigua DO suture infection concern (Patient indicates chest suture is ooozing green and she is vomiting. Spoke with Cindy Singh RN - she recommended patient contact ER for care as they did the sutures.) 07/20/[address] [phone] Edi Lantigua DO Severe obesity (BMI 35.0-39.9) with comorbidity (CMS/HCC) 07/17/2025 11:20 AM CDT Office Visit [address] [phone] ERRONEOUS ENCOUNTER--DISREGARD (Primary Dx) 07/15/[address] [phone] Edi Lantigua DO Provider Call 07/14/2025 Orders Only [facility] Admitting [address] [place] [phone] Aziza Estrada MD Status post Fontan procedure (Primary Dx) 07/14/[address] [phone] Edi Lantigua DO Moderate episode of recurrent major depressive disorder (CMS/HCC); Anxiety state; PTSD (post-traumatic stress disorder) 07/11/2025 12:00 PM CDT Clinical Support [address] [phone] Hypoplastic left heart syndrome (Primary Dx) 07/11/2025 Orders Only [address] [address] Provider, Abstract 07/11/[address] [address] Edi Lantigua DO Referral Request 07/11/[address] [address] Edi Lantigua DO Provider Call 07/10/[address] [address] Edi Lantigua DO Provider Call; Needs Orders Written 07/08/2025 External Device Data STL ABSTRACTION Provider, Abstract 07/08/2025 External Device Data STL ABSTRACTION Provider, Abstract 07/08/2025 External Device Data STL ABSTRACTION Provider, Abstract 07/02/2025 Patient Outreach [address] [address] Care, [facility] 06/25/2025 Results Follow-Up [address] [address] Emmie Maria LPN COMPREHENSIVE METABOLIC PANEL, CBC WITH DIFFERENTIAL 06/24/2025 Orders Only Initial Department [address] [place]: [place] [address] Provider, Historical 06/23/2025 1:20 PM CDT Office Visit [address] [address] Edi Lantigua DO Fontan circulation present (Primary Dx); Hypoplastic left heart syndrome; Severe obesity (BMI 35.0-39.9) with comorbidity (CMS/HCC) 06/20/2025 Orders Only [place] [address] [place] [address] Provider, Abstract 06/13/[address] [phone] Edi Lantigua DO Medication Problem 06/11/2025 Patient Outreach [address] [phone] Baldemar Pizano APRN CoCM Psychiatric Recommendations 06/10/[address] [phone] Edi Lantigua DO Cough 06/10/2025 Results Follow-Up [address] [phone] Edi Lantigua DO RESPIRATORY PATHOGEN PCR PANEL 06/09/2025 11:00 AM CDT Office Visit [address] [phone] Edi Lantigua DO Fontan circulation present (Primary Dx); Hypoplastic left heart syndrome; Respiratory illness; Acute cough; Moderate episode of recurrent major depressive disorder (CMS/HCC); Anxiety state; PTSD (post-traumatic stress disorder) 06/09/2025 Patient Outreach [address] [phone] [facility], [facility] from Last 3 Months Immunizations Immunization Administration [...] PERTUSSIS, HEPATITIS B, AND INACTIVATED POLIOVIRUS VACCINE ([id number]), 0.5ML, IM 01/11/2005,2004 (PREVNAR 20)(6 WKS UP) PNEUM OCOCCAL CONJUGATE VACCINE 20-VALENT (PCV20), POLYSACCHARIDE [id number] CONJUGATE, ADJUVANT 0.5 ML (PF) IM 05/24/2024 [...] about transportation for future doctor visits, pick out hand medication, etc.? 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:52 PM ALTERNATIVE ENERGY TECHNICIAN Gender Identity Not on file Sexual Orientation Not on file Occupation Industry Job Start Date Job End Date Not on file Not on file Not on file Not on file Last Filed Vital Signs Vital Sign Reading Time Taken Comments Blood Pressure 106/68 09/03/2025 10:39 AM ALTERNATIVE ENERGY TECHNICIAN Pulse 100 09/03/2025 10:39 AM ALTERNATIVE ENERGY TECHNICIAN Temperature 36.3 C (97.4 F) 09/03/2025 10:39 AM ALTERNATIVE ENERGY TECHNICIAN Respiratory Rate 22 09/03/2025 10:3 9 AM ALTERNATIVE ENERGY TECHNICIAN Oxygen Saturation 87% 09/03/2025 10: 39 AM ALTERNATIVE ENERGY TECHNICIAN Patient declined oxygen. Inhaled Oxygen Concentration - - Weight 98.5 kg (217 lb 3.2 oz) 09/03/2025 10:39 AM ALTERNATIVE ENERGY TECHNICIAN Height 170.2 cm (5' 7 ) 09/03/2025 10:3 9 AM ALTERNATIVE ENERGY TECHNICIAN Body Mass Index 34.02 09/03/2025 10:39 AM ALTERNATIVE ENERGY TECHNICIAN Plan of Treatment Upcoming Encounters Date Type Department Care Team (Late st Contact Info) Description 11/05/2025 10:40 AM ALTERNATIVE ENERGY TECHNICIAN Office Visit [facility] [address] [place] [phone] Edi Lantigua DO [address] [phone] Health Maintenance Due Date Last Done Comments CHLAMYDIA SCREENING (ANNUAL) 11-24 YEARS 06/20/2025 06/20/2024 CERVICAL CANCER SCREENING 2025 HPV/Cotest (21-29) 2025 PAP SMEAR 2025 DTAP/TDAP/TD VACCINES (7 - T d or Tdap) 06/28/2026 06/28/2016, 06/28/2016, 08/04/2011, Additional history exists Preventative Visit-Managed Medicaid 08/05/2026 08/04/2025, 08/28/2024, 12/21/2020 HEPATITIS B VACCINES Completed 03/14/2005, 01/11/2005, 01/11/2005, Additional history exists HPV VACCINES Completed 09/21/2022, 08/0 11/2021, 03/21/2022 INFLUENZA VACCINE Completed 08/15/2025, , 08/18/2017, Additional history exists Medical Devices Implanted Type Area Automation Machine Builder Device Identifier Shelf Expiration Date Model / Serial / Lot Barrier [id number] [id number] - Sna Implanted:Qty : 1 on 07/09/2015 by Devin Owen MD Adhesion Barrier Right: Ear PFIZER- PHARM 08/31/2015 [id number] / NA / [id number] Description:NOT AN IMPLANT- absorbable Explanted Type Area Automation Machine Builder Device Identifier Shelf Expiration Date Model / Serial / Lot Ear Tube Explanted:Qty: 1 on 07/09/2015 by Devin Owen MD Right: Ear Description:Removed and disc arded Procedures Procedure Name Priority Date/Time Associated Diagnosis Comments D-DIMER Routine 08/12/2025 11:05 AM ALTERNATIVE ENERGY TECHNICIAN Elevated d-dimer COMPREHENSIVE METABOLIC PANEL Routine 08/12/2025 11:05 AM ALTERNATIVE ENERGY TECHNICIAN Cellulitis of chest wall TSH Routine 08/04/2025 10:23 AM ALTERNATIVE ENERGY TECHNICIAN Anxiety state LIPID RFLX Routine 08/04/2025 10:23 AM ALTERNATIVE ENERGY TECHNICIAN Prediabetes HEMOGLOBIN A1C Routine 08/04/2025 10:23 AM ALTERNATIVE ENERGY TECHNICIAN Prediabetes SEDIMENTATION RATE Routine 08/04/2025 10 :23 AM ALTERNATIVE ENERGY TECHNICIAN Nausea and vomiting, unspecified vomiting type C-REACTIVE PROTEIN Routine 08/04/2025 10 :23 AM ALTERNATIVE ENERGY TECHNICIAN Nausea and vomiting, unspecified vomiting type D-DIMER Routine 08/04/2025 10:23 AM ALTERNATIVE ENERGY TECHNICIAN Fontan circulation present Shortness of breath AMYLASE Routine 08/04/2025 10:23 AM ALTERNATIVE ENERGY TECHNICIAN Prediabetes LIPASE Routine 08/04/2025 10:23 AM ALTERNATIVE ENERGY TECHNICIAN Prediabetes BRAIN NATRIURETIC PEPTIDE, BNP OR PROBNP Routine 08/04/2025 10:23 AM ALTERNATIVE ENERGY TECHNICIAN Hypoplastic left heart syndrome Fontan circulation present COMPREHENSIVE METABOLIC PANEL Routine 08/04/2025 10:23 AM ALTERNATIVE ENERGY TECHNICIAN Nausea and vomiting, unspecified vomiting type CBC WITH DIFFERENTIAL Routine 08/04/2025 10:23 AM ALTERNATIVE ENERGY TECHNICIAN Nausea and vomiting, unspecified vomiting type XR FOOT 3+ VW LEFT Stat 08/03/2025 12 :50 PM ALTERNATIVE ENERGY TECHNICIAN XR CHEST PA AND LATERAL 2 VW Routine 08/01/2025 12:07 PM CDT Shortness of breath EKG Routine 07/11/2025 12:22 PM CDT CBC WITH DIFFERENTIAL Routine 06/24/2025 1:21 PM CDT COMPREHENSIVE METABOLIC PANEL Routine 06/24/2025 1:21 PM CDT CARDIOPULMONARY REHAB REPORT 06/18/2025 2:35 PM CDT CL LT AND RT HEART CATH Routine 06/16/20 11:11 AM CDT RESPIRATORY PATHOGEN PCR PANEL Routine 06/09/2025 12:32 PM CDT 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 D-DIMER QUANT 0.35 <0.50 mcg/mL FEU [facility] Comment: Elevated D-dimer levels are associated with DIC, malignancies, inflammation, sepsis, surgery, trauma, and . A D-dimer result less than 0.5 mcg/mL FEU, in conjunction with a non-high clinical pre-test probability assessment model, excludes deep vein thrombosis and pulmonary embolism. However, since D-dimer values increase with age, the [place] [employer] recommends an age-adjusted cut-off value in patients older than 50. The calculation for an age adjusted cut-off value is age (years) x 0.01 mcg/mL FEU. For example, the cut-off for a 70-year-old patient would be 69 x 0.01 mcg/mL FEU. For additional information, please refer to http://education.Acision/faq/PXX252 (This link is being provided for informational/educational purposes only.) Test Performed at: [facility] [id number] [facility] [place] [address] John Martinez MD Blood 08/12/2025 11:0 5 AM ALTERNATIVE ENERGY TECHNICIAN 08/12/2025 11:05 AM ALTERNATIVE ENERGY TECHNICIAN Edi Lantigua HEMATOLOGY ORDERABLES Final R esult [facility] [phone] [facility] [address] [facility] [place] [address] * (ABNORMAL) COMPREHENSIVE METABOLIC PANEL (08/12/2025 11:05 AM ALTERNATIVE ENERGY TECHNICIAN) Only the most recent of3 resultswithin the time period is included. GLUCOSE 85 65 - 99 mg/dL [facility] Comment: Fasting reference interval BUN 12 7 - 25 mg/dL [facility] CREATININE 0.71 0.50 - 0.96 mg/dL [...] [facility] Comment: Test Performed at: [facility] [address] [facility] [place] [address] John Martinez MD Blood 08/12/2025 11:0 5 AM ALTERNATIVE ENERGY TECHNICIAN 08/12/2025 11:05 AM ALTERNATIVE ENERGY TECHNICIAN us Edi Lantigua DO CHEMISTRY ORDERABLES Final Re sult [facility] [phone] [facility] [address] [facility] [place] [address] * (ABNORMAL) LIPID RFLX (08/04/2025 10:23 AM ALTERNATIVE ENERGY TECHNICIAN) CHOLESTEROL 130 <200 mg/dL [facility] [...] equation in the estimation of LDL-C. Desean MENON et al. PATO. 2013;310(19): 4412-3619 (http://education.Axcient.Karo Internet/faq/UAH303) CHOL/HDL RATIO 3.0 <5.0 (calc) [facility] NON-HDL CHOLESTEROL 86 <130 mg/dL (calc) [facility] Comment: For patients with diabetes plus 1 major ASCVD risk factor, treating to a non-HDL-C goal of <100 mg/dL (LDL-C of <70 mg/dL) is considered a therapeutic option. Test Performed at: [facility] [id number] [facility] [place] [address] John Martinez MD Blood 08/04/2025 10:2 3 AM ALTERNATIVE ENERGY TECHNICIAN 08/04/2025 10:23 AM ALTERNATIVE ENERGY TECHNICIAN Edi Lantigua DO CHEMISTRY ORDERABLES Final Re sult [facility] [phone] [facility] [address] [facility] [place] [address] * (ABNORMAL) CBC WITH DIFFERENTIAL (08/04/2025 10:23 AM ALTERNATIVE ENERGY TECHNICIAN) Only the most recent of2 resultswithin the time period is included. WBC 11.5(H) 3.8 - 10.8 Thousand/u L [facility] RBC 5.46(H) 3.80 - 5.10 Million/uL [...] [facility] Comment: Test Performed at: [facility] [address] [facility] [place] [address] John Martinez MD Blood 08/04/2025 10:2 3 AM ALTERNATIVE ENERGY TECHNICIAN 08/04/2025 10:23 AM ALTERNATIVE ENERGY TECHNICIAN Edi Lantigua HEMATOLOGY ORDERABLES Final R esult [facility] [phone] [facility] [address] [place] [address] * SEDIMENTATION RATE (08/04/2025 10:23 AM ALTERNATIVE ENERGY TECHNICIAN) ESR (SEDIMENTATION RATE) 2 < OR = 20 mm/h [facility] Comment: Test Performed at: [facility] [address] [facility] [address] John Martinez MD Blood 08/04/2025 10:2 3 AM ALTERNATIVE ENERGY TECHNICIAN 08/04/2025 10:23 AM ALTERNATIVE ENERGY TECHNICIAN Edi Lantigua DO HEMATOLOGY ORDERABLES Final R esult Performing Organization Address [facility] [address]/ZIP Co de Phone Number [facility] [phone] [facility] [address] [facility] [place] [address] * C-REACTIVE PROTEIN (08/04/2025 10:23 AM ALTERNATIVE ENERGY TECHNICIAN) Pathologist [facility] CRP <3.0 <8.0 mg/L [facility] Comment: Test Performed at: [facility] [address] [place] [address] John Martinez MD Blood 08/04/2025 10:2 3 AM ALTERNATIVE ENERGY TECHNICIAN 08/04/2025 10:23 AM ALTERNATIVE ENERGY TECHNICIAN Edi Lantigua CHEMISTRY ORDERABLES Final Re sult Performing Organization Address [facility] [address]/[facility] Co de Phone Number [facility] [phone] [facility] [id number] [place] [address] [address] * TSH (08/04/2025 10:23 AM ALTERNATIVE ENERGY TECHNICIAN) Pathologist [facility] TSH 2.91 mIU/L [facility] Comment: Reference Range > or = 20 Years 0.40-4.50 Ranges First trimester 0.26-2.66 Second trimester 0.55-2.73 Third trimester 0.43-2.91 Test Performed at: [facility] [address] [place] [address] John Martinez MD Blood 08/04/2025 10:2 3 AM ALTERNATIVE ENERGY TECHNICIAN 08/04/2025 10:23 AM ALTERNATIVE ENERGY TECHNICIAN Edi Lantigua DO CHEMISTRY ORDERABLES Final Re sult Performing Organization Address City/[facility] [address]/ZIP Co de Phone Number [facility] [phone] [facility] [address] [facility] [place] [address] * (ABNORMAL) BRAIN NATRIURETIC PEPTIDE, BNP OR PROBNP (08/04/2025 10:23 AM ALTERNATIVE ENERGY TECHNICIAN) Pathologist [facility] PROBNP, N TERMINAL 429(H) <125 pg/mL [facility] Comment: Test Performed at: [facility] [address] John Martinez MD Blood 08/04/2025 10:2 3 AM ALTERNATIVE ENERGY TECHNICIAN 08/04/2025 10:23 AM ALTERNATIVE ENERGY TECHNICIAN Edi Grzegorz BAL CHEMISTRY ORDERABLES Final Re sult [facility] [phone] [facility] [address] * LIPASE (08/04/2025 10:23 AM ALTERNATIVE ENERGY TECHNICIAN) Pathologist [facility] LIPASE 38 7 - 60 U/L [facility] Comment: Test Performed at: [facility] [address] John Martinez MD Blood 08/04/2025 10:2 3 AM ALTERNATIVE ENERGY TECHNICIAN 08/04/2025 10:23 AM ALTERNATIVE ENERGY TECHNICIAN us Ediemma Lantigua DO CHEMISTRY ORDERABLES Final Re sult [facility] [phone] [facility] [address] * HEMOGLOBIN A1C (08/04/2025 10:23 AM ALTERNATIVE ENERGY TECHNICIAN) Pathologist [facility] HEMOGLOBIN A1C 5.3 <5.7 % [facility] Comment: For the purpose of screening for the presence of diabetes: <5.7% Consistent with the absence of diabetes 5.7-6.4% Consistent with increased risk for diabetes (prediabetes) > or =6.5% Consistent with diabetes This assay result is consistent with a decreased risk of diabetes. Currently, no consensus exists regarding use of hemoglobin A1c for diagnosis of diabetes in children. According to [place] [employer] (ADA) guidelines, hemoglobin A1c <7.0% represents optimal control in non- diabetic patients. Different metrics may apply to specific patient populations. Standards of Medical Care in Diabetes(ADA). ESTIMATED AVERAGE GLUCOSE (MG/DL) 105 mg/dL [facility] ESTIMATED AVERAGE GLUCOSE (MMOL/L) 5.8 mmol/L [facility] Comment: Test Performed at: [facility] [address] [place] [address] John Martinez MD Blood 08/04/2025 10:2 3 AM ALTERNATIVE ENERGY TECHNICIAN 08/04/2025 10:23 AM ALTERNATIVE ENERGY TECHNICIAN Edi Lantigua DO CHEMISTRY ORDERABLES Final Re sult Performing Organization Address City/[facility] [address]/ZIP Co de Phone Number [facility] [phone] [facility] [address] [facility] [place] [address] * AMYLASE (08/04/2025 10:23 AM ALTERNATIVE ENERGY TECHNICIAN) AMYLASE 28 21 - 101 U/L [facility] Comment: Test Performed at: [facility] [address] [facility] [place] [address] John Martinez MD Blood 08/04/2025 10:2 3 AM ALTERNATIVE ENERGY TECHNICIAN 08/04/2025 10:23 AM ALTERNATIVE ENERGY TECHNICIAN Edi Lantigua DO CHEMISTRY ORDERABLES Final Re sult [facility] [phone] [facility] [address] [place], [place] [address] [address] * XR FOOT 3+ VW LEFT (08/03/2025 12:50 PM ALTERNATIVE ENERGY TECHNICIAN) Anatomical Region Laterality Modality Ankle / Foot Computed Radiogr aphy 08/03/2025 12:5 0 PM ALTERNATIVE ENERGY TECHNICIAN Impressions 08/03/2025 1:02 PM ALTERNATIVE ENERGY TECHNICIAN IMPRESSION: Please see below. Exam: XR FOOT 3+ VW LEFT Date/Time of Exam: 08/03/2025 12:50 PM Reason For Exam: Injury. Diagnosis: See Reason for Exam. Comparison: March 18, 2025 FINDINGS: PA, lateral and oblique projections show no fracture or dislocation. Hallux valgus. Dorsal soft tissue edema. Narrative Procedure Note Nga Gume Ricky, DO - 08/03/2025 IMPRESSION: Please see below. Exam: XR FOOT 3+ VW LEFT Date/Time of Exam: 08/03/2025 12:50 PM Reason For Exam: Injury. Diagnosis: See Reason for Exam. Comparison: March 18, 2025 FINDINGS: PA, lateral and oblique projections show no fracture or dislocation. Hallux valgus. Dorsal soft tissue edema. Ciara Mary MD DIAGNOSTIC IMAGING ORDERABLES F [...] osseous abnormality. Narrative Procedure Note Enrique Shoemaker, DO - 08/02/2025 IMPRESSION: See below. Exam: XR CHEST PA AND LATERAL 2 VW Date/Time of Exam: 08/01/2025 12:07 PM Reason For Exam: See Diagnosis. Diagnosis: Shortness of breath. Prior: 05/01/2023 Findings: Prior median sternotomy. Unchanged vascular stent. Battery pack overlies the left upper chest. Cardiac silhouette is within normal limits. No focal consolidation, pleural effusion or pneumothorax. No acute osseous abnormality. Edi Lantigua DO DIAGNOSTIC IMAGING ORDERABLES Final Result * EKG (07/11/2025 12:22 PM CDT) us Abstract Provider ECG ORDERABLES Final Result [id number] [address] [place] [id number] * CARDIOPULMONARY REHAB REPORT (06/18/2025 2:35 PM CDT) Edi Lantigua DO CARDIAC SERVICES ORDERABLES F inal Result * CL LT AND RT HEART CATH (06/16/2025 11:11 AM CDT) Abstract Provider FLUOROSCOPY ORDERABLES Final R esult * (ABNORMAL) RESPIRATORY PATHOGEN PCR PANEL (06/09/2025 12:32 PM CDT) COVID-19 PCR NOT DETECTED Not Detected 06/09/20 7:18 PM CDT [facility] Human Rhinovirus/En terovirus by PCR DETECTED(A) Not Detected 06/09/2025 7:18 PM CDT [facility] Upper Respiratory ENTIRE NASOPHARYNX / Unknown Collection / Unknown 06/09/2025 12:32 PM CDT 06/09/2025 5:11 PM CDT Narrative [facility] - 06/09/2025 7:18 PM CDT The [...] ORDERA BLES Final Result Performing Organization Address [facility] [address]/[facility] Co de Phone Number [facility] CLIA # [id number] [id number] [place] [address] * GC/CHLAMYDIA, UROGENITAL (06/20/2024 10:30 AM CDT) CHLAMYDIA TRACHOMATIS RNA, TMA, UROGENITAL NOT DETECTED NOT DETECTED [facility] NEISSERIA GONORRHOEAE RNA, TMA, UROGENITAL NOT DETECTED NOT DETECTED [facility] COMMENT INFECTIOUS DISEASE [facility] Comment: The analytical performance characteristics of this assay, when used to test SurePath(TM) specimens have been determined by [employer]. The modifications have not been cleared or approved by the FDA. This assay has been validated pursuant to the CLIA regulations and is used for clinical purposes. For additional information, please refer to https://education.[employer]/faq/FHA792 (This link is being provided for information/ educational purposes only.) Test Performed at: [facility] [id number] [facility] [place] [address] John Martinez MD Urine (Urine, 1st catch) 06/20/2024 10:30 AM CDT 06/20/2024 11:07 PM CDT Lila [facility]ONP MICROBIOLOGY - GENERAL ORDERA BLES Final Result Performing Organization Address City/[facility] [address]/[facility] Co de Phone Number [facility] [phone] [facility] [address] [place] [address] from Last 3 Months or Most Recently Relevant to Health Maintenance Insurance [place]ICA[place] RX EXPRESS [facility] Express [place]ICA[place] Care Teams Whiting Can Worker Relationship Specialty Start Date End Date Edi Lantigua DO [address] [place] [address] PCP - General Family Practice 08/06/24
--- OUTSIDE RECORDS SUMMARY | 2025-09-03 16:29 | XMS_ITS | Encounter Summary ---
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 [address] [place] [address] Social History Tobacco Use Types Packs/Day Years Used Date Smoking Tobacco: Never Assessed Comments Unknown Sex and Gender Information Value Date Recorded Sex Assigned at Not on file Legal Sex Female 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
--- OUTSIDE RECORDS SUMMARY | 2025-09-03 16:29 | XMS_ITS | Encounter Summary ---
Author Organization [facility] Address [address] [place] [address] Care Team Providers Care Batch Plant Supervisor Name Role Phone Edi Lantigua DO Primary Care Provider [phone] Encounter Details Date Type Department Care Team (Latest Contact Info) Description 08/14/2025 Results Follow-Up [facility] [address] [address] Edi Lantigua DO [address] [address] COMPREHENSIVE METABOLIC PANEL, D-DIMER Social [...] worry about transportation for future doctor visits, vegetable picker medication, etc.? No 2024 Housing Stability [...] file Legal Sex Female 3:52 PM MEDIA COORDINATOR Gender Identity Not on file Sexual Orientation Not on file Occupation Industry Job Start Date Job End Date Not on file Not on file Not on file Not on file documented as of this encounter Plan of Treatment Upcoming Encounters Date Type Department Care Team (Late st Contact Info) Description 11/05/2025 10:40 AM MEDIA COORDINATOR Office Visit [facility] [address] [place] [phone] Edi Lantigua DO [address] [place] [phone] documented as of this encounter Visit Diagnoses Not on filedocumented in this encounter Care Teams Batch Plant Supervisor Relationship Specialty Start Date End Date Edi Lantigua DO [address] [place] [address] [phone] PCP - General Family Practice 08/06/24 documented as of this encounter
--- NOTE | 2025-09-03 17:06 | XRR_ITS ---
PROCEDURE INFORMATION: Exam: XR Chest Exam date and time: 09/03/2025 5:08 PM Age: 20 years old Clinical indication: Cough; Additional info: Coughing TECHNIQUE: Imaging protocol: Radiologic exam of the chest. Views: 1 view. COMPARISON: CR XR chest 1V portable [id number] 08/19/2025 5:44 PM FINDINGS: Lungs: Unremarkable. No consolidation. Pleural spaces: Unremarkable. No pleural effusion. No pneumothorax. Heart/Mediastinum: Cardiac silhouette is prominent, similar to prior. Similar appearance of mediastinal postsurgical changes. Bones/joints: Status post median sternotomy. XR/XR chest 1V portable [id number] IMPRESSION: No acute cardiopulmonary findings.
--- NOTE | 2025-09-03 17:10 | W.ED.NAVMDI ---
Documented by User: ANAY Ann 09/03/25 18:10 HPI - Nausea/Vomiting/Diarrhea General: Chief complaint: Nausea/Vomiting/Diarrhea Stated complaint: NV Time Seen by Provider: 09/03/25 16:58 Source: patient Mode of arrival: ambulatory Limitations: no limitations History of Present Illness: Patient is a 20-year-old female with past medical history of hypoplastic left heart syndrome who presents the emergency department complaining of continuous nausea vomiting. 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 States that she has been coughing as well, but does not feel short of breath. She tells me that due to her history of hypoplastic left heart syndrome, she chronically has O2 saturation in the 80s, and states that normal for her is 85% and above. She states she does not have any chest pain or shortness of breath at this time, but does tell me that she has been having trouble keeping anything down secondary to her nausea and vomiting. Overall tells me this is unchanged, specifically from her last visit here to the emergency department on 08/19. No diarrhea, is reporting constipation however. She has not been taking her Zepbound this month, stopped taking it since her last visit in the emergency department as she had figured this was causing her symptoms. O2 saturation 85% on room air at this time, afebrile, overall the patient is nontoxic-appearing. Patient recently had ultrasound of right upper quadrant last month, due to abdominal pain which showed stones in the gallbladder but no evidence of cholecystitis. She has no reports of abdominal pain at this time. She also has a history of Fontan liver disease. MD elicited complaint: nausea and vomiting Onset (ago): month(s) Associated nausea: Yes Associated symtoms: Reports nausea; Denies bloating, chest pain, diaphoresis, dizziness, dysuria, headache(s) or palpitations Related Data Home Medications ?Medication ?Instructions ?Recorded ?Confirmed aspirin 81 mg tablet,delayed 81 mg PO DAILY 08/03/20 04/03/25 release (Adult Aspirin Regimen) amlodipine 5 mg tablet 5 mg PO DAILY 09/19/24 04/03/25 clindamycin HCl 300 mg capsule 300 mg PO .1 hour before visit 09/19/24 04/03/25 levothyroxine 88 mcg capsule 88 mcg PO DAILY 09/19/24 04/03/25 losartan 100 mg tablet 100 mg PO DAILY 09/19/24 04/03/25 venlafaxine 75 mg capsule,extended 75 mg PO DAILY 09/19/24 04/03/25 release 24 hr tirzepatide (weight loss) 7.5 7.5 mg SUBCUT .weekly 04/03/25 04/03/25 mg/0.5 mL subcutaneous pen injector (Zepbound) Previous Rx's ?Medication ?Instructions ?Recorded cetirizine 10 mg tablet (Zyrtec) 10 mg PO DAILY #30 tabs 12/05/22 fluticasone propionate 50 2 spray intranasal DAILY #16 grams 12/05/22 mcg/actuation nasal spray,suspension (Flonase Allergy Relief) levofloxacin 500 mg tablet 500 mg PO DAILY #7 tabs 07/02/25 metoclopramide HCl 10 mg tablet 10 mg PO Q6H PRN nausea and 08/19/25 vomiting #14 tabs Allergies Allergy/AdvReac Type Severity Reaction Status Date / Time adhesive Allergy Unknown Verified 09/03/25 16:18 amoxicillin Allergy hives Verified 09/03/25 16:18 Penicillins Allergy Unknown Verified 09/03/25 16:18 Review of Systems General: Reports: 10 or more systems reviewed and unremarkable except in HPI and below Const: Denies: fever(s), chills, change in appetite, change in weight or diaphoresis ENMT: Denies: throat pain or hoarseness Card: Denies: chest pain, palpitations or lightheadedness Resp: Reports: non-productive cough; Denies: dyspnea, productive cough or wheezing GI: Reports: nausea and vomiting; Denies: abdominal pain, diarrhea, constipation, bloating, change in stool character or hematochezia : Denies: flank pain, difficulty voiding, dysuria, urinary frequency or urinary urgency Musc: Denies: neck pain or back pain Skin/Breast: Denies: rash or new lesions Neuro: Denies: headache(s) or dizziness PFSH ED PFSH: Medical History Psychiatric care HLH (hypoplastic left heart syndrome) Hypoplasia Surgical History History of open heart surgery Family History Other Diabetes mellitus type 1 Hypertension Hypothyroidism Social History Smoking and tobacco/nicotine status: current every day tobacco/nicotine user e-cigarettes E-Cigarette Details: e-cigarette and with nicotine E-cig/vape details: disposable goes through one in a week Quit status (tobacco/nicotine): not considering quitting Second hand smoke exposure: Yes Alcohol intake: never Substance/Drug Use: never Adopted: No Caregiver/support person: No Lives independently: No Household members: family and other Housing: House Marital status: Single Number of children: 0 Highest education level completed: Some College, No Degree service: No Current occupational status: disabled Pets and animals: Yes Pets & animals: dog(s) Leisure activites: other Leisure activities details: watch [employer] and talk with her grandma Sexually active: No Do you think of yourself as: Straight/Heterosexual Current gender identity: Female Natalie/Confucianist: None Special natalie needs: No Agree to transfusion: Yes Female Reproductive History: Para: 0 Spontaneous abortions: Yes (X2) Physical Exam Const: COMMON NORMALS: no acute distress, average body habitus, patient oriented x3, no limitations, healthy appearing, alert and well nourished GENERAL APPEARANCE: cooperative and comfortable ORIENTATION/CONSCIOUSNESS: Yes awake OTHER: nontoxic, does not show any significant signs of dehydration Neck/C-Spine: COMMON NORMALS: full ROM, supple and no meningeal signs Resp: COMMON NORMALS: normal respiratory effort, No retractions, No use of accessory muscles and clear to auscultation bilaterally AUSCULTATION: clear to auscultation bilaterally, no crackles, no rales, no rhonchi and no wheezes Cardio: COMMON NORMALS: regular rate, regular rhythm, No gallops present (Cardio), No clicks present (Cardio), No murmurs present (Cardio) and No rub (Cardio) RATE: regular rate RHYTHM: regular rhythm GI: COMMON NORMALS: Normal to inspection, nondistended, normoactive bowel sounds present, Soft to palpation, non-tender, No hepatosplenomegaly present and no masses AUSCULTATION: Yes normoactive bowel sounds PALPATION: Yes Soft to palpation, No Guarding due to palpation present (GI), No Rigid due to palpation and Yes No hepatosplenomegaly present RECTAL EXAM: deferred : COMMON NORMALS: Yes no CVA tenderness BLADDER/KIDNEY EXAM: Yes no CVA tenderness Back/Pelvis: COMMON NORMALS: no CVA tenderness Extremity: COMMON NORMALS: normal to inspection and full ROM Neuro: COMMON NORMALS: patient oriented x3, moves all extremities, no focal motor deficits and no sensory deficits noted SENSORIUM/ORIENTATION: Yes alert MENINGEAL SIGNS: Yes no meningeal signs Psych: COMMON NORMALS: mental status grossly normal, cooperative and speech normal SPEECH: Yes normal speech Skin: COMMON NORMALS: no rashes or lesions noted GENERAL SKIN EXAM: no rashes or lesions noted Course Vital Signs: Vital signs: Vital Signs Temperature 97.5 F L 09/03/25 16:11 Pulse Rate 109 H 09/03/25 16:11 Blood Pressure 109/80 09/03/25 16:11 Pulse Oximetry 85 L 09/03/25 16:11 Oxygen Delivery Me thod Room Air 09/03/25 16:11 MDM - Nausea/Vomiting/Diarrhea Medical Decision Making Patient requesting to leave AGAINST MEDICAL ADVICE despite metabolic panel being only lab that is back. States that she had felt better, she will sign AMA form and she will continue plan for colonoscopy. Lab Data 09/03/25 17:28 09/03/25 17:28 Radiology Impressions Chest X-Ray 09/03/25 17:06 IMPRESSION: No acute cardiopulmonary findings. Laboratory Results WBC 9.06 10^3/uL (3.29-11.43) 09/03/25 17:28 RBC 5.53 10^6/uL (3.85-5.65) 09/03/25 17:28 Hgb 15.70 g/dL (11.27-16.99) 09/03/25 17:28 Hct 46.7 % (36-47) 09/03/25 17:28 MCV 84.4 fl (85-98) L 09/03/25 17:28 MCH 28.4 pg (27-33) 09/03/25 17:28 MCHC 33.6 g/dL (30-55) 09/03/25 17: RDW 13.4 % (12.1-15.1) 09/03/25 17: Plt Count 169 10^3/cmm (157-399) 09/03/25 17: MPV 13.8 fL (7.4-10.4) H 09/03/25 17: Neut % (Auto) 80.7 % 09/03/25 17: Lymph % (Auto) 9.5 % 09/03/25 17:28 [place] % (Auto) 9.1 % 09/03/25 17: Eos % (Auto) 0.0 % 09/03/25 17: Baso % (Auto) 0.4 % 09/03/25 17: Neut # (Auto) 7.31 10^3/uL (1.8-7.7) 09/03/25 17: Lymph # (Auto) 0.9 10^3/uL (0.8-4.8) 09/03/25 17:28 [place] # (Auto) 0.8 10^3/uL (0.2-0.9) 09/03/25 17: Eos # (Auto) 0.0 10^3/uL (0.0-0.8) 09/03/25 17: Baso # (Auto) 0.0 10^3/uL (0.0-0.1) 09/03/25 17: Nucleated RBC % (auto) 0 % 09/03/25 17: Nucleated RBCs # 0.0 /100WBC 09/03/25 17:28 Sodium 137 mmol/L (136-145) 09/03/25 17: Potassium 3.9 mmol/L (3.5-5.1) 09/03/25 17: Chloride 105 mmol/L (98-107) 09/03/25 17: Carbon Dioxide 18 mmol/L (22-29) L 09/03/25 17: Anion Gap 17.9 (5-19) 09/03/25 17:28 BUN 10 mg/dL (6-20) 09/03/25 17: Creatinine 0.6 mg/dL (0.5-0.9) 09/03/25 17:28 GFR Calculation 126.2 mL/min (90-130) 09/03/25 17:28 Glucose 84 mg/dL (65-115) 09/03/25 17:28 Calculated Osmolality 282 mOsm/kg (285-295) L 09/03/25 17:28 Calcium 9.6 mg/dL (8.5-10.5) 09/03/25 17:28 Total Bilirubin 1.0 mg/dL (0.15-1.2) 09/03/25 17:28 AST 13 U/L (0-32) 09/03/25 17:28 ALT 12 U/L (0-33) 09/03/25 17: Alkaline Phosphatase 74 U/L (35-105) 09/03/25 17: Total Protein 7.7 g/dL (6.6-8.7) 09/03/25 17:28 Albumin 4.4 g/dL (3.5-5.2) 09/03/25 17: Globulin 3.3 g/dL (1.3-4.6) 09/03/25 17:28 Lipase 36 U/L (13-60) 09/03/25 17:28 All radiology interpretation(s) finalized by discharge Discharge Plan Discharge Patient Disposition: Left Against Medical Advice Clinical Impression: Left against medical advice, Gastroenteritis Condition: Stable Prescriptions: No Action aspirin [Adult Aspirin Regimen] 81 mg tablet,delayed release (DR/EC) 81 mg PO DAILY fluticasone propionate [Flonase Allergy Relief] 50 mcg/actuation spray,suspension 2 spray intranasal DAILY Qty: 16 0RF Rx Instructions: administer into each nostril cetirizine [Zyrtec] 10 mg tablet 10 mg PO DAILY Qty: 30 0RF Zepbound 7.5 mg/0.5 mL pen injector 7.5 mg SUBCUT .weekly losartan 100 mg tablet 100 mg PO DAILY venlafaxine 75 mg capsule,extended release 24hr 75 mg PO DAILY Rx Instructions: With 150 mg amlodipine 5 mg tablet 5 mg PO DAILY levothyroxine 88 mcg capsule 88 mcg PO DAILY clindamycin HCl 300 mg capsule 300 mg PO .1 hour before visit levofloxacin 500 mg tablet 500 mg PO DAILY Qty: 7 0RF metoclopramide HCl 10 mg tablet 10 mg PO Q6H PRN (Reason: nausea and vomiting) Qty: 14 0RF Referrals: Edi Lantigua DO [Primary Care Provider] Print Language: Belizean Coding 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[employer] Documented by User: Ankur Mota DO 09/03/25 18:11 HPI - Nausea/Vomiting/Diarrhea General: Chief complaint: Nausea/Vomiting/Diarrhea Stated complaint: NV Time Seen by Provider: 09/03/25 16:58 Related Data Home Medications ?Medication ?Instructions ?Recorded ?Confirmed aspirin 81 mg tablet,delayed 81 mg PO DAILY 08/03/20 04/03/25 release (Adult Aspirin Regimen) amlodipine 5 mg tablet 5 mg PO DAILY 09/19/24 04/03/25 clindamycin HCl 300 mg capsule 300 mg PO .1 hour before visit 09/19/24 04/03/25 levothyroxine 88 mcg capsule 88 mcg PO DAILY 09/19/24 04/03/25 losartan 100 mg tablet 100 mg PO DAILY 09/19/24 04/03/25 venlafaxine 75 mg capsule,extended 75 mg PO DAILY 09/19/24 04/03/25 release 24 hr tirzepatide (weight loss) 7.5 7.5 mg SUBCUT .weekly 04/03/25 04/03/25 mg/0.5 mL subcutaneous pen injector (Zepbound) Previous Rx's ?Medication ?Instructions ?Recorded cetirizine 10 mg tablet (Zyrtec) 10 mg PO DAILY #30 tabs 12/05/22 fluticasone propionate 50 2 spray intranasal DAILY #16 grams 12/05/22 mcg/actuation nasal spray,suspension (Flonase Allergy Relief) levofloxacin 500 mg tablet 500 mg PO DAILY #7 tabs 07/02/25 metoclopramide HCl 10 mg tablet 10 mg PO Q6H PRN nausea and 08/19/25 vomiting #14 tabs Allergies Allergy/AdvReac Type Severity Reaction Status Date / Time adhesive Allergy Unknown Verified 09/03/25 16:18 amoxicillin Allergy hives Verified 09/03/25 16:18 Penicillins Allergy Unknown Verified 09/03/25 16:18 PFSH ED PFSH: Medical History Psychiatric care HLH (hypoplastic left heart syndrome) Hypoplasia Surgical History History of open heart surgery Family History Other Diabetes mellitus type 1 Hypertension Hypothyroidism Social History Smoking and tobacco/nicotine status: current every day tobacco/nicotine user e-cigarettes E-Cigarette Details: e-cigarette and with nicotine E-cig/vape details: disposable goes through one in a week Quit status (tobacco/nicotine): not considering quitting Second hand smoke exposure: Yes Alcohol intake: never Substance/Drug Use: never Adopted: No Caregiver/support person: No Lives independently: No Household members: family and other Housing: House Marital status: Single Number of children: 0 Highest education level completed: Some College, No Degree service: No Current occupational status: disabled Pets and animals: Yes Pets & animals: dog(s) Leisure activites: other Leisure activities details: watch [employer] and talk with her grandma Sexually active: No Do you think of yourself as: Straight/Heterosexual Current gender identity: Female Natalie/Confucianist: None Special natalie needs: No Agree to transfusion: Yes Course Vital Signs: Vital signs: Vital Signs Temperature 97.5 F L 09/03/25 16:11 Pulse Rate 109 H 09/03/25 16:11 Blood Pressure 109/80 09/03/25 16:11 Pulse Oximetry 85 L 09/03/25 16:11 Oxygen Delivery Me thod Room Air 09/03/25 16:11 MDM - Nausea/Vomiting/Diarrhea Medical Decision Making Patient requesting to leave AGAINST MEDICAL ADVICE despite metabolic panel being only lab that is back. States that she had felt better, she will sign AMA form and she will continue plan for colonoscopy. Chart reviewed. Lab Data 09/03/25 17:28 09/03/25 17:28 Radiology Impressions Chest X-Ray 09/03/25 17:06 IMPRESSION: No acute cardiopulmonary findings. Laboratory Results WBC 9.06 10^3/uL (3.29-11.43) 09/03/25 17: RBC 5.53 10^6/uL (3.85-5.65) 09/03/25 17: Hgb 15.70 g/dL (11.27-16.99) 09/03/25 17: Hct 46.7 % (36-47) 09/03/25 17: MCV 84.4 fl (85-98) L 09/03/25 17: MCH 28.4 pg (27-33) 09/03/25 17: MCHC 33.6 g/dL (30-55) 09/03/25 17: RDW 13.4 % (12.1-15.1) 09/03/25 17: Plt Count 169 10^3/cmm (157-399) 09/03/25 17: MPV 13.8 fL (7.4-10.4) H 09/03/25 17: Neut % (Auto) 80.7 % 09/03/25 17:28 Lymph % (Auto) 9.5 % 09/03/25 17:28 [place] % (Auto) 9.1 % 09/03/25 17: Eos % (Auto) 0.0 % 09/03/25 17: Baso % (Auto) 0.4 % 09/03/25 17: Neut # (Auto) 7.31 10^3/uL (1.8-7.7) 09/03/25 17: Lymph # (Auto) 0.9 10^3/uL (0.8-4.8) 09/03/25 17:28 [place] # (Auto) 0.8 10^3/uL (0.2-0.9) 09/03/25 17: Eos # (Auto) 0.0 10^3/uL (0.0-0.8) 09/03/25 17: Baso # (Auto) 0.0 10^3/uL (0.0-0.1) 09/03/25 17: Nucleated RBC % (auto) 0 % 09/03/25 17: Nucleated RBCs # 0.0 /100WBC 09/03/25 17:28 Sodium 137 mmol/L (136-145) 09/03/25 17:28 Potassium 3.9 mmol/L (3.5-5.1) 09/03/25 17:28 Chloride 105 mmol/L (98-107) 09/03/25 17:28 Carbon Dioxide 18 mmol/L (22-29) L 09/03/25 17:28 Anion Gap 17.9 (5-19) 09/03/25 17:28 BUN 10 mg/dL (6-20) 09/03/25 17:28 Creatinine 0.6 mg/dL (0.5-0.9) 09/03/25 17:28 GFR Calculation 126.2 mL/min (90-130) 09/03/25 17:28 Glucose 84 mg/dL (65-115) 09/03/25 17:28 Calculated Osmolality 282 mOsm/kg (285-295) L 09/03/25 17:28 Calcium 9.6 mg/dL (8.5-10.5) 09/03/25 17:28 Total Bilirubin 1.0 mg/dL (0.15-1.2) 09/03/25 17:28 AST 13 U/L (0-32) 09/03/25 17:28 ALT 12 U/L (0-33) 09/03/25 17:28 Alkaline Phosphatase 74 U/L (35-105) 09/03/25 17:28 Total Protein 7.7 g/dL (6.6-8.7) 09/03/25 17:28 Albumin 4.4 g/dL (3.5-5.2) 09/03/25 17:28 Globulin 3.3 g/dL (1.3-4.6) 09/03/25 17:28 Lipase 36 U/L (13-60) 09/03/25 17:28 Discharge Plan Discharge Patient Disposition: Left Against Medical Advice Clinical Impression: Left against medical advice, Gastroenteritis Condition: Stable Prescriptions: No Action aspirin [Adult Aspirin Regimen] 81 mg tablet,delayed release (DR/EC) 81 mg PO DAILY fluticasone propionate [Flonase Allergy Relief] 50 mcg/actuation spray,suspension 2 spray intranasal DAILY Qty: 16 0RF Rx Instructions: administer into each nostril cetirizine [Zyrtec] 10 mg tablet 10 mg PO DAILY Qty: 30 0RF Zepbound 7.5 mg/0.5 mL pen injector 7.5 mg SUBCUT .weekly losartan 100 mg tablet 100 mg PO DAILY venlafaxine 75 mg capsule,extended release 24hr 75 mg PO DAILY Rx Instructions: With 150 mg amlodipine 5 mg tablet 5 mg PO DAILY levothyroxine 88 mcg capsule 88 mcg PO DAILY clindamycin HCl 300 mg capsule 300 mg PO .1 hour before visit levofloxacin 500 mg tablet 500 mg PO DAILY Qty: 7 0RF metoclopramide HCl 10 mg tablet 10 mg PO Q6H PRN (Reason: nausea and vomiting) Qty: 14 0RF Referrals: Edi Lantigua DO [Primary Care Provider] Print Language: Belizean 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
[2025-09-03 17:51] LABS: Hematocrit 46.7 % (36-47); Hemoglobin 15.70 g/dL (11.27-16.99); Mean Corpuscular HGB Conc 33.6 g/dL (30-55); Mean Corpuscular Hemoglobin 28.4 pg (27-33); Mean Corpuscular Volume 84.4 fl (85-98); Nucleated Red Blood Cells % 0 %; Platelet Count 169 10^3/cmm (157-399); Red Blood Count 5.53 10^6/uL (3.85-5.65); White Blood Count 9.06 10^3/uL (3.29-11.43)
[2025-09-03 17:58] LABS: Alanine Aminotransferase 12 U/L (0-33); Albumin Level 4.4 g/dL (3.5-5.2); Alkaline Phosphatase 74 U/L (35-105); Anion Gap 17.9 (5-19); Aspartate Amino Transferase 13 U/L (0-32); Blood Urea Nitrogen 10 mg/dL (6-20); Calcium 9.6 mg/dL (8.5-10.5); Carbon Dioxide 18 mmol/L (22-29); Chloride 105 mmol/L (98-107); Globulin 3.3 g/dL (1.3-4.6); Glucose 84 mg/dL (65-115); Lipase 36 U/L (13-60); Osmolality Calculated 282 mOsm/kg (285-295); Potassium 3.9 mmol/L (3.5-5.1); Sodium 137 mmol/L (136-145); Total Protein 7.7 g/dL (6.6-8.7)
[2025-09-03] MEDS: metoclopramide 5 mg/mL SDV 2 mL 10 MG IVP (18:00)
[2025-09-03 18:10] LABS: Slide Review Slide Review Perform
[2025-09-03 19:48] LABS: Coronavirus 229E,HKU1,NL63,OC4 Not Detected (NOT DETECT); Parainfluenza Virus Type 1 Not Detected (NOT DETECT); Parainfluenza Virus Type 2 Not Detected (NOT DETECT); Parainfluenza Virus Type 3 Not Detected (NOT DETECT); Parainfluenza Virus Type 4 Not Detected (NOT DETECT); SARS-COV-2 Not Detected (NOT DETECT)
== END 2025-09-03 18:12 | disposition left against medical advice (07) ==
PROVIDERS: Emergency Provider Physician Assistant; PCP Family Medicine
DX: Z53.21 Procedure and treatment not carried out due to patient leaving prior to being seen by health care provider (principal); K52.9 Noninfective gastroenteritis and colitis, unspecified; Z79.82 Long term (current) use of aspirin; F17.290 Nicotine dependence, other tobacco product, uncomplicated
CPT/HCPCS: 36415; 71045; 80053; 83690; 85025; 87486; 87581; 87633; 96374; 99284; J2765; J7030